=== PATIENT | male | born 1965 | race Caucasian/White ===

== ENCOUNTER 2016-07-15 16:09 | Emergency (ER) | payer MEDICARE ==
[~2016-07-15] VITALS: Ht 175.3 cm; Wt 94.0 kg
[~2016-07-15 16:09] MED LIST: ALBU83IN INH; AZIT250T3 PO; AZIT500I IV; BREO1INH3 PO; CEFT1INJ65 IV; CENTTAB PO; FLUT1LOT INH; FOLI5INJ2 IV; LISI10TA4 PO; METH40VIAL IV; NYST10CR PO; PRED10TA PO; PRED20TA PO; PROT40IN4 IV; THIA100I4 IV; VITMTA PO
[2016-07-15] MEDS ORDERED: MEDR4PAK (16:25)
[2016-07-15] MEDS ORDERED: ALBU17IN (16:25)
[2016-07-15 16:45] VITALS: BP 128/76
== END 2016-07-15 17:43 | disposition home or self-care (01) ==
LOC: EDBD 16:09 → M ED 17:27
DX: F19.10 Other psychoactive substance abuse, uncomplicated (principal); F10.229 Alcohol dependence with intoxication, unspecified; I10 Essential (primary) hypertension; J44.9 Chronic obstructive pulmonary disease, unspecified; F17.200 Nicotine dependence, unspecified, uncomplicated; Z79.2 Long term (current) use of antibiotics; Z79.899 Other long term (current) drug therapy; Z79.84 Long term (current) use of oral hypoglycemic drugs; Z79.51 Long term (current) use of inhaled steroids; Z88.1 Allergy status to other antibiotic agents

== ENCOUNTER 2016-08-16 12:20 | Emergency (ER) | payer MEDICARE ==
[~2016-08-16] VITALS: Ht 175.3 cm; Wt 90.7 kg
[~2016-08-16 12:20] MED LIST changes: +ALBU17IN; +MEDR4PAK
[2016-08-16 13:10] VITALS: BP 147/100
== END 2016-08-16 13:14 | disposition home or self-care (01) ==
LOC: M ED 12:49
DX: Z48.02 Encounter for removal of sutures (principal); I10 Essential (primary) hypertension

== ENCOUNTER → 2016-08-23 | Outpatient (CLI) | payer MEDICARE | LOC: M OUTALCOH 14:00 | PROVIDERS: ATTEND Psychiatry & Neurology Psychiatry | DX: F14.20 Cocaine dependence, uncomplicated (principal); F15.20 Other stimulant dependence, uncomplicated ==

== ENCOUNTER 2016-08-31 15:51 | Outpatient (RCR) | payer MEDICARE ==
[~2016-08-31 15:51] MED LIST changes: +AZIT-12 PO; -AZIT250T3 PO
== END 2016-09-14 ==
LOC: M OUTALCOH 15:51
PROVIDERS: ATTEND Psychiatry & Neurology Psychiatry
DX: Z13.9 Encounter for screening, unspecified (principal); F14.20 Cocaine dependence, uncomplicated; F15.20 Other stimulant dependence, uncomplicated; F17.200 Nicotine dependence, unspecified, uncomplicated

== ENCOUNTER 2017-01-07 20:22 | Emergency (ER) | payer MEDICARE ==
[~2017-01-07] VITALS: Ht 175.3 cm; Wt 113.6 kg
[~2017-01-07 20:22] MED LIST changes: -AMOX500C PO
[2017-01-07] MEDS: IPRATROPIUM 0.5MG/ALBUTEROL 2.5MG INH SOL UD 3ML (DUONEB)(J7620) NEB PRN ×3 (22:00→22:02)
[2017-01-07 22:04] LABS: ABG BASE EXCESS 0.7 (-2.0-2.0); ABG HCO3 24.8 MEQ/L (22.0-26.0); ABG PARTIAL PRESSURE CO2 38.4 mmHg (35.0-45.0); ABG PARTIAL PRESSURE O2 102.4 mmHg (75.0-100.0); ABG STANDARD HCO3 25.1 MEQ/L (22.0-26.0); ABG pH (ARTERIAL) 7.428 UNITS (7.350-7.450)
[2017-01-07 22:19] LABS: BASO % 0.1 % (0.0-1.0); EOS # 0.1 10^3/uL (0.0-0.50); EOS % 0.9 % (0.0-3.0); IMMATURE GRANULOCYTE % 0.7 % (0-0); LYMPH # 0.5 10^3/uL (1.5-4.5); LYMPH % 5.4 % (24.0-44.0); MEAN CORPUSCULAR HEMOGLOBIN 30.4 pg (27.0-33.0); MEAN CORPUSCULAR HGB CONC 33.1 g/dl (32.0-36.5); MONO # 0.1 10^3/uL (0.0-0.8); NEUTROPHILS # 8.1 10^3/uL (1.8-7.7); NEUTROPHILS % 91.9 % (36.0-66.0); PLATELET COUNT, AUTOMATED 151 10^3/uL (150-450); RED CELL DISTRIBUTION WIDTH 12.5 % (11.5-14.5); WHITE BLOOD COUNT 8.8 10^3/uL (4.0-10.0)
[2017-01-07 22:46] LABS: ANION GAP 7 MEQ/L (8-16); BLOOD UREA NITROGEN 13 MG/DL (7-18); CALCIUM LEVEL 8.9 MG/DL (8.5-10.1); CARBON DIOXIDE LEVEL 33 MEQ/L (21-32); CHLORIDE LEVEL 103 MEQ/L (98-107); CREATININE FOR GFR 0.88 MG/DL (0.70-1.30); GLOMERULAR FILTRATION RATE > 60.0 (>56); GLUCOSE, FASTING 136 MG/DL (70-105); POTASSIUM SERUM 4.6 MEQ/L (3.5-5.1); SODIUM LEVEL 143 MEQ/L (136-145)
[2017-01-07] MEDS ORDERED: PRED20TA PO (23:45)
[2017-01-07] MEDS ORDERED: AMOXICILLIN 500 MG CAP PO ONE (23:45)
[2017-01-07] MEDS ORDERED: AMOX500C PO (23:45)
[2017-01-08 00:04] VITALS: BP 142/67
--- NOTE | 2017-01-08 07:52 | REP ---
PA and lateral chest 10:33 p.m. : Comparison is a 01/07/2017 at 05:58 p.m. There is focal discoid atelectasis inferiorly in the left lung, unchanged. There are no focal infiltrates or effusions. There is a 2.5 cm nodule in the right middle lobe, unchanged. The susanne are enlarged bilaterally. This is unchanged. Cardiac size is upper normal. Mediastinum and bony thorax unremarkable. Impression: Discoid atelectasis on the left. Right middle lobe lung nodule. Enlarged bilateral susanne. Signed by Babar Goode MD 01/08/2017 07:43 A
--- NOTE | 2017-01-08 10:09 | ED PDOC ---
Post-Departure Follow-Up radiology report faxed to Jerica Lynne MD Jan 08, 2017 10:09
== END 2017-01-08 00:37 | disposition home or self-care (01) ==
LOC: M ED 20:22
DX: J44.9 Chronic obstructive pulmonary disease, unspecified (principal); J02.0 Streptococcal pharyngitis; I10 Essential (primary) hypertension; Z88.1 Allergy status to other antibiotic agents; F17.210 Nicotine dependence, cigarettes, uncomplicated
CPT/HCPCS: 36415; 36600; 71020; 80048; 82550; 82553; 82803; 83605; 84484; 85025; 87040; 87804; 87880; 93041; 94640; 99284; G0463; J2930; J7613; J7644

== ENCOUNTER → 2017-01-07 | Outpatient (CLI) | payer MEDICARE ==
[~2017-01-07] MED LIST changes: +AMOX500C PO
--- NOTE | 2017-01-07 18:18 | REP ---
REASON: Dyspnea. COMPARISON: 03/20/2016 The interstitial markings are diffusely increased. There is bilateral perihilar, peribronchial cuffing. This is unchanged. There is a nodular density in the right middle lobe which is unchanged. Prior CT showed this to be a calcified granuloma. There is no plain film evidence of an acute patchy parenchymal opacity or pleural effusion. The cardiomediastinal silhouette is unchanged. Prior CT showed adenopathy. That should be reviewed by all interested parties. There is no change in the osseous structure. IMPRESSION: Stable appearing chronic changes as described above. Correlate clinically to assess for acute disease, superimposed on chronic change. Signed by David Ken DO 01/07/2017 07:29 P
== END ==
LOC: M LRY 17:36
PROVIDERS: ATTEND Nurse Practitioner Family
DX: R06.02 Shortness of breath (principal); J98.4 Other disorders of lung

== ENCOUNTER → 2018-06-30 | Outpatient (REF) ==
[~2018-06-30] MED LIST changes: +AMOX500C PO; +FLON1SPR NARES; +FLUTISP; +HYDR12.55 PO; +IPRA0.00 INH; +METF-877 PO; +PATIENT COMMENTS; +PRED-351 PO; -PRED10TA PO
[2018-07-01 11:42] LABS: ALBUMIN 3.4 GM/DL (3.2-5.2); CALCIUM LEVEL 7.6 MG/DL (8.5-10.1)
== END ==
LOC: M LAB LCGH 11:10
DX: Z00.00 Encounter for general adult medical examination without abnormal findings (principal)

== ENCOUNTER 2018-07-01 02:45 | Inpatient (IN) | payer MEDICARE ==
[2018-07-01] VITALS (21 sets, daily range): BP systolic 111–135; BP diastolic 54–65; O2SAT 94
[~2018-07-01] VITALS: Ht 190.5 cm; Wt 125.9 kg
[~2018-07-01 02:45] MED LIST changes: -FLON1SPR NARES; -FLUTISP; -HYDR12.55 PO; -IPRA0.00 INH; -METF-877 PO; -PATIENT COMMENTS
[2018-07-01] MEDS ORDERED: PROPOFOL 1,000 MG/100 ML VIAL As Ordered ONE (02:51)
[2018-07-01] MEDS ORDERED: PROPOFOL 1,000 MG in APPROPRIATE DILUENT 1 EA IV SCH (03:00)
[2018-07-01 03:08] LABS: ABG BASE EXCESS 6.9 (-2.0-2.0); ABG HCO3 33.8 MEQ/L (22.0-26.0); ABG O2 SATURATION 93.7 % (95.0-99.0); ABG PARTIAL PRESSURE CO2 56.7 mmHg (35.0-45.0); ABG PARTIAL PRESSURE O2 63.1 mmHg (75.0-100.0); ABG STANDARD HCO3 30.6 MEQ/L (22.0-26.0); ABG TOTAL CO2 35.5 MEQ/L (22.0-29.0); ABG pH (ARTERIAL) 7.393 UNITS (7.350-7.450)
[2018-07-01] MEDS ORDERED: MORPHINE 4 MG/ML 1ML VIAL/SYRINGE (J2270) IV PRN (04:15)
[2018-07-01] MEDS ORDERED: GLUCAGON FOR INJ 1 MG VIAL (J1610) SC PRN (04:15)
[2018-07-01] MEDS ORDERED: GLUCOSE 4 GM CHEW TABLET PO PRN (04:15)
[2018-07-01] MEDS ORDERED: DEXTROSE 50% 50 ML SYRINGE IV PRN (04:15)
[2018-07-01] MEDS ORDERED: FLUTISP (04:21)
[2018-07-01] MEDS ORDERED: METF-877 PO (04:21)
[2018-07-01] MEDS ORDERED: FLON1SPR NARES (04:21)
[2018-07-01] MEDS ORDERED: IPRA0.00 INH (04:21)
[2018-07-01] MEDS ORDERED: HYDR12.55 PO (04:21)
[2018-07-01] MEDS ORDERED: PATIENT COMMENTS (04:24)
[2018-07-01] MEDS: PROPOFOL 1,000 MG in APPROPRIATE DILUENT 1 EA IV SCH ×7 (05:04→22:32)
--- NOTE | 2018-07-01 05:43 | HPE ---
DATE OF ADMISSION: 07/01/2018 START TIME: 03:55 STOP TIME: 04:29 HISTORY OF PRESENT ILLNESS: In essence this is a 53-year-old gentleman with known prior substance abuse, chronic hypoxemic, hypercapnic respiratory failure with previous longstanding tobacco abuse and known lung nodules. He was last seen as an inpatient here in 2016. In essence he presented to [facility] Emergency room (ER) with increasing shortness of breath and was found to be hypoxic on his usual oxygen. He has been on medications through his primary for an upper respiratory infection. Even on 5 liters nasal cannula apparently he still had sats in the 70s and 80s but was mentating. Blood gases done there showed a pH of 7.2 and PCO2 that was reportedly out of range of their machine. He was placed on noninvasive support. Repeat blood gas apparently showed no improvement. He was then getting lethargic by their report and was intubated and transferred here. No other history is able to be obtained from the patient and minimal was obtained from the chart from [facility]. On arrival here after being ventilated pH is 7.393, PCO2 56.7, PO2 63.1. ALLERGIES: LEVAQUIN with a rash. HOME MEDICATIONS: - Centrum Silver - baby aspirin - Symbicort 160/4.5 - albuterol - Augmentin started recently - prednisone unknown dose - BrendonoNebridget hypoxemic and hypercapnic respiratory failure on home oxygen - Flonase - Hydrochlorothiazide 12.5 mg daily - Metformin 1000 mg twice a day PAST MEDICAL HISTORY: 1. Rlx-tgpaihw-illvfgvkz diabetes mellitus. 2. Previous substance abuse, polysubstance abuse. 3. Previous longstanding tobacco abuse. 4. Chronic hypoxic and hypercapnic respiratory failure on home oxygen. 5. History of lung nodules. SOCIAL HISTORY: Unobtainable but known previous tobacco and substance abuse. FAMILY HISTORY: Unobtainable. REVIEW OF SYSTEMS: Currently unobtainable from the patient and minimal is obtained from the chart other than what is outlined above. PHYSICAL EXAMINATION: Examination currently reveals a sedated gentleman who appears his stated age. VITAL SIGNS: Blood pressure 104/60, heart rate 66 and regular, respirations 20 via the ventilator and he is afebrile. HEENT: Oroendotracheal and orogastric tube. Pupils are small but reactive. Mild conjunctival edema. Membranes are moist. Trachea is in the midline. CHEST: Symmetric expansion with some rhonchi. Some faint basilar crackles but no obvious wheeze. Expansion is symmetric. CARDIAC: Distant but regular. Peripheral pulses palpable, no edema. ABDOMEN: Obese, soft, active bowel sounds, no masses, nontender although he is sedate. EXTREMITIES: No cyanosis or clubbing. NEUROLOGICALLY: He is sedated. Chest x-ray shows the endotracheal tube to be in good position. Orogastric tube goes below the diaphragm. What appears to be chronic changes, otherwise. LABORATORY DATA: All repeat laboratories here are pending. White blood cell count from [facility] 8.7, hemoglobin 14.5, platelets 153,000. Electrolytes from [facility] Count: Sodium 139, potassium (K) 3.6, chloride 98, CO2 38, BUN 13, creatinine 0.8. Cultures are pending. IMPRESSION: 1. Acute on chronic hypoxemic hypercapnic respiratory failure requiring respiratory support with mechanical ventilation. 2.Advanced obstructive lung disease. 3. Previous tobacco abuse. 4. Previous substance abuse. 5. Xtm-xujjzmx-rcatikpqs diabetes mellitus. 6. Previous stable lung nodules. RECOMMENDATIONS: At this point he will be sedated, ventilator adjustments will be made as needed. He will be placed on empiric antimicrobials, intravenous (IV) steroids and nebulized bronchodilators. Deep venous thrombosis (DVT) and ulcer prophylaxis are ordered. My hope is that we will be able to wean him quickly as there is actually no active bronchospasm at the moment at least currently. Will need to address whether or not he has had any repeat issues with substance abuse. We will monitor his sugars. There is high potential for compromise in view of his status. Further recommendations will be made in the progress record as new information becomes available. I left the bedside at 04:29 hours. 34 minutes of critical care time at the bedside not including procedures.
[2018-07-01] MEDS: MIDAZOLAM INJ 2 MG/2 ML VIAL (J2250) IV PRN ×3 (06:04→21:47)
[2018-07-01] MEDS: HumaLOG INSULIN (NovoLOG) PER UNIT SC SCH ×4 (06:39→23:39)
[2018-07-01] MEDS: HEPARIN SOD (PORCINE) 5000 UNITS/ML VIAL SC SCH ×3 (06:52→21:17)
[2018-07-01] MEDS: KCL 20MEQ IN D5/0.45NS 1000ML 1,000 ML IV SCH ×3 (06:52→20:36)
[2018-07-01] MEDS: AZITHROMYCIN INJ 500 MG, VIAL MATE ADAPTER 1 EACH in D5W 250 ML IV SCH (06:52)
[2018-07-01] MEDS: methylPREDNISolone INJ 125 MG/2 ML VIAL (J2930) IV SCH ×3 (06:52→21:16)
[2018-07-01 07:30] LABS: BASO % 0.2 % (0.0-1.0); EOS % 0.2 % (0.0-3.0); HEMATOCRIT 44.3 % (42.0-52.0); HEMOGLOBIN 14.4 g/dl (13.5-17.5); LYMPH # 0.5 10^3/uL (1.5-4.5); LYMPH % 10.2 % (24.0-44.0); MEAN CORPUSCULAR HEMOGLOBIN 30.3 pg (27.0-33.0); MEAN CORPUSCULAR HGB CONC 32.5 g/dl (32.0-36.5); MEAN CORPUSCULAR VOLUME 93.1 fl (80.0-96.0); MONO # 0.2 10^3/uL (0.0-0.8); MONO % 4.7 % (0.0-5.0); NEUTROPHILS % 83.9 % (36.0-66.0); PLATELET COUNT, AUTOMATED 162 10^3/uL (150-450); RED BLOOD COUNT 4.76 10^6/uL (4.30-6.10); WHITE BLOOD COUNT 4.7 10^3/uL (4.0-10.0)
--- NOTE | 2018-07-01 07:53 | REP ---
Portable chest, 03:04 a.m., single semi upright AP view: Comparison is 01/07/2017. There is atelectasis inferiorly in the left lung, similar to the comparison study. There is a nodule inferiorly in the right lung. On the previous PA and lateral views this was in the right middle lobe. The nodule measures search 3.0 cm on the study today. The susanne again appear large bilaterally. This is unchanged. There is an endotracheal tube with the tip at the marce but not selectively within either the right and left main stem bronchi. There is a nasogastric tube with the tip terminating in the abdominal left upper quadrant. Impression: ET tube tip is at the marce but not selectively within the right or left main stem bronchi. Electronically Signed by Babar Goode MD 07/01/2018 07:44 A
[2018-07-01 07:54] LABS: ALBUMIN 3.4 GM/DL (3.2-5.2); ALT/SGPT 33 U/L (12-78); BILIRUBIN,TOTAL 0.4 MG/DL (0.2-1.0); BLOOD UREA NITROGEN 13 MG/DL (7-18); CARBON DIOXIDE LEVEL 35 MEQ/L (21-32); CHLORIDE LEVEL 100 MEQ/L (98-107); CHOLESTEROL LEVEL 110 MG/DL (< 200); CPK CREATINE PHOSPHOKINASE 123 U/L (39-308); CREATININE FOR GFR 0.75 MG/DL (0.70-1.30); GLOMERULAR FILTRATION RATE > 60.0 (>56); GLUCOSE, FASTING 197 MG/DL (70-100); LDH LACTATE DEHYDROGENASE 164 U/L (87-241); PHOSPHORUS LEVEL 1.9 MG/DL (2.5-4.9); POTASSIUM SERUM 3.6 MEQ/L (3.5-5.1); SODIUM LEVEL 139 MEQ/L (136-145); TOTAL PROTEIN 5.8 GM/DL (6.4-8.2); TRIGLYCERIDES LEVEL 88 MG/DL (<150)
[2018-07-01] MEDS: IPRATROPIUM 0.5MG/ALBUTEROL 2.5MG INH SOL UD 3ML (DUONEB)(J7620) NEB SCH ×5 (07:58→23:35)
[2018-07-01] MEDS: CHLORHEXIDINE GLUCONATE 0.12 % 15ML UDC (PERIDEX ORAL RINSE) MT SCH ×2 (08:50→20:08)
[2018-07-01] MEDS: PANTOPRAZOLE 40MG INJ (PROTONIX) (C9113) IV SCH (08:50)
[2018-07-01] MEDS: cefTRIAXone SOD 1 GM in D5W MINI-BAG PLUS 50 ML IV SCH (08:50)
[2018-07-01 09:13] LABS: ABG BASE EXCESS 5.8 (-2.0-2.0); ABG O2 SATURATION 91.6 % (95.0-99.0); ABG PARTIAL PRESSURE CO2 57.8 mmHg (35.0-45.0); ABG PARTIAL PRESSURE O2 60.2 mmHg (75.0-100.0); ABG STANDARD HCO3 29.5 MEQ/L (22.0-26.0); ABG TOTAL CO2 34.7 MEQ/L (22.0-29.0); ABG pH (ARTERIAL) 7.374 UNITS (7.350-7.450)
--- NOTE | 2018-07-01 09:17 | CCN ---
DATE OF VISIT: 07/01/2018 START TIME: 08 STOP TIME: 0849 I again attended Eleno Rosales here in the intensive care unit. The patient has been examined and the chart is reviewed. Over the last several hours, he has had no other new issues. Blood pressure 115 to 120s. He has not required vasopressors. Heart rate generally in the 60s with a sinus mechanism. T-max 99.2. Most recent laboratories show a white blood cell count of 4.7, hemoglobin 14.4 and platelet count 162,000, with 83.9% segs, 0 bands. Sodium 139, potassium 3.6, chloride 100, CO2 35, BUN 13, creatinine 0.75, glucose 197. Phosphorus low at 1.9. On exam, pupils do react. Sclerae are clear. Mild conjunctival irritation. Trachea is midline. Membranes are moist. Endotracheal tube is at 25 to 26 cm at the lip this morning, having been at 23 this morning. Will get an x-ray to see where we are at with that. Chest shows diminished, but symmetric expansion. Percussion reasonable. No wheeze or rhonchus. Cardiac exam is regular with no gallop. Peripheral pulses palpable. There is trace edema. Abdomen obese, soft, with active bowel sounds. No organomegaly or masses. Extremities without cyanosis or clubbing. Neurologically, he is sedate. The most pressing problems requiring my presence at the bedside are: 1. Acute on chronic respiratory failure, both hypoxemic and hypercapnic. 2. Advanced obstructive lung disease. 3. Long standing previous history of tobacco abuse. 4. Previous lung nodules. 5. Substance abuse. 6. Non insulin dependent diabetes mellitus. At this point, will recheck his chest x-ray. He was just intubated several hours ago so we will check a blood gas to see where we are at with his ventilator settings and make adjustments as need be. Hopefully, in the next 24 to 48 hours, we will be able to push him to extubation. If we are not able to extubate him by tomorrow, then will begin enteral feeds. Will replete his phosphorus. Glucose control is reasonable. Ulcer and deep vein thrombosis (DVT) prophylaxis are in place and head of the bed is at 30 degrees. At this point, he does remain critically ill. I left the bedside at 0849 hours. An additional 19 minutes of critical care time delivered at the bedside, not including procedures.
--- NOTE | 2018-07-01 09:18 | REP ---
Portable chest x-ray: Single view. History: Respiratory failure. Comparison study: July 01, 2018. Findings: Endotracheal tube remains in good position at the level of the transverse aorta. An NG tube enters left upper quadrant of the abdomen. There is bibasilar plate-like atelectatic change. The known right lower lobe nodular opacity is partially obscured today. Pulmonary vasculature is cephalized. Heart size is unchanged. No new infiltrate. Electronically Signed by Fredi Borrero MD 07/01/2018 09:11 A
[2018-07-01] MEDS ORDERED: POTASSIUM PHOSPHATE INJ 20 MMOL in D5W 250 ML IV ONE (10:00)
[2018-07-01] MEDS: OXAZEPAM 15 MG CAP NG SCH (22:31)
[2018-07-02] VITALS (23 sets, daily range): BP systolic 109–151; BP diastolic 53–73; O2SAT 94
[2018-07-02] MEDS: PROPOFOL 1,000 MG in APPROPRIATE DILUENT 1 EA IV SCH ×3 (00:45→06:15)
[2018-07-02] MEDS: IPRATROPIUM 0.5MG/ALBUTEROL 2.5MG INH SOL UD 3ML (DUONEB)(J7620) NEB SCH ×5 (04:10→20:12)
[2018-07-02] MEDS: KCL 20MEQ IN D5/0.45NS 1000ML 1,000 ML IV SCH (04:20)
[2018-07-02] MEDS: MIDAZOLAM INJ 2 MG/2 ML VIAL (J2250) IV PRN (04:32)
[2018-07-02 04:34] LABS: BASO % 0.1 % (0.0-1.0); EOS % 0.1 % (0.0-3.0); HEMATOCRIT 43.1 % (42.0-52.0); LYMPH # 0.4 10^3/uL (1.5-4.5); LYMPH % 5.3 % (24.0-44.0); MEAN CORPUSCULAR HEMOGLOBIN 30.3 pg (27.0-33.0); MEAN CORPUSCULAR HGB CONC 32.5 g/dl (32.0-36.5); MEAN CORPUSCULAR VOLUME 93.3 fl (80.0-96.0); MONO # 0.5 10^3/uL (0.0-0.8); MONO % 5.8 % (0.0-5.0); NEUTROPHILS # 7.2 10^3/uL (1.8-7.7); NEUTROPHILS % 88.2 % (36.0-66.0); PLATELET COUNT, AUTOMATED 154 10^3/uL (150-450); RED BLOOD COUNT 4.62 10^6/uL (4.30-6.10); WHITE BLOOD COUNT 8.2 10^3/uL (4.0-10.0)
[2018-07-02] MEDS: methylPREDNISolone INJ 125 MG/2 ML VIAL (J2930) IV SCH ×3 (04:55→21:23)
[2018-07-02] MEDS: AZITHROMYCIN INJ 500 MG, VIAL MATE ADAPTER 1 EACH in D5W 250 ML IV SCH (04:55)
[2018-07-02 05:25] LABS: ALBUMIN 3.4 GM/DL (3.2-5.2); ALT/SGPT 28 U/L (12-78); BILIRUBIN,TOTAL 0.3 MG/DL (0.2-1.0); BLOOD UREA NITROGEN 12 MG/DL (7-18); CARBON DIOXIDE LEVEL 37 MEQ/L (21-32); CHLORIDE LEVEL 101 MEQ/L (98-107); CHOLESTEROL LEVEL 130 MG/DL (< 200); CPK CREATINE PHOSPHOKINASE 142 U/L (39-308); CREATININE FOR GFR 0.74 MG/DL (0.70-1.30); GLOMERULAR FILTRATION RATE > 60.0 (>56); GLUCOSE, FASTING 245 MG/DL (70-100); LDH LACTATE DEHYDROGENASE 134 U/L (87-241); PHOSPHORUS LEVEL 2.6 MG/DL (2.5-4.9); POTASSIUM SERUM 3.8 MEQ/L (3.5-5.1); SODIUM LEVEL 141 MEQ/L (136-145); TOTAL PROTEIN 5.5 GM/DL (6.4-8.2); TRIGLYCERIDES LEVEL 122 MG/DL (<150)
[2018-07-02 05:34] LABS: ABG BASE EXCESS 5.3 (-2.0-2.0); ABG HCO3 31.9 MEQ/L (22.0-26.0); ABG O2 SATURATION 94.1 % (95.0-99.0); ABG PARTIAL PRESSURE CO2 54.7 mmHg (35.0-45.0); ABG PARTIAL PRESSURE O2 68.8 mmHg (75.0-100.0); ABG STANDARD HCO3 29.2 MEQ/L (22.0-26.0); ABG TOTAL CO2 33.6 MEQ/L (22.0-29.0); ABG pH (ARTERIAL) 7.384 UNITS (7.350-7.450)
[2018-07-02] MEDS: HEPARIN SOD (PORCINE) 5000 UNITS/ML VIAL SC SCH ×3 (06:15→21:23)
[2018-07-02] MEDS: cefTRIAXone SOD 1 GM in D5W MINI-BAG PLUS 50 ML IV SCH (06:16)
[2018-07-02] MEDS: HumaLOG INSULIN (NovoLOG) PER UNIT SC SCH ×4 (06:16→21:00)
[2018-07-02] MEDS: OXAZEPAM 15 MG CAP NG SCH (06:16)
[2018-07-02] MEDS ORDERED: SLF 3 ML SYR IV PRN (06:45)
--- NOTE | 2018-07-02 07:41 | REP ---
Normal chest, 06:46 a.m., single AP semi upright view: Comparison is 07/01/2018. The bibasilar atelectasis is unchanged. Lung hopkins otherwise clear. The patient is rotated. The endotracheal tube and nasogastric tube remain in satisfactory positions, unchanged. Electronically Signed by Babar Goode MD 07/02/2018 07:32 A
[2018-07-02] MEDS: PANTOPRAZOLE 40MG INJ (PROTONIX) (C9113) IV SCH (08:07)
[2018-07-02] MEDS: CHLORHEXIDINE GLUCONATE 0.12 % 15ML UDC (PERIDEX ORAL RINSE) MT SCH ×2 (08:07→21:00)
[2018-07-02 10:30] LABS: ABG BASE EXCESS 2.8 (-2.0-2.0); ABG O2 SATURATION 94.8 % (95.0-99.0); ABG PARTIAL PRESSURE CO2 56.6 mmHg (35.0-45.0); ABG PARTIAL PRESSURE O2 76.1 mmHg (75.0-100.0); ABG STANDARD HCO3 26.9 MEQ/L (22.0-26.0); ABG TOTAL CO2 31.7 MEQ/L (22.0-29.0); ABG pH (ARTERIAL) 7.342 UNITS (7.350-7.450)
[2018-07-02 10:34] LABS: MAGNESIUM LEVEL 2.7 MG/DL (1.8-2.4)
--- NOTE | 2018-07-02 10:40 | HPEPDOC ---
General Date of Admission Jul 01, 2018 at 04:15 Chief Complaint The patient is a 53-year-old male admitted with a reason for visit of Acute Res piratory Failure W Hypercapnia, Copd. Source: Patient History of Present Illness The patient is a 52-year-old gentleman with a previous history of substance abuse as well as COPD who was transferred from [facility] for respiratory failure requiring intubation. The patient was admitted to the ICU under the associate director qa service. The patient was extubated earlier today. He reports to me that he was having some cough with whitish sputum at home. Denies necessary fevers/chills or sweats. Denies any chest pain. No nausea or vomiting. Reports he was taking by mouth intake well. Denies any recent smoking. Reports a history of [id number] or more smoking but quit over 2 years ago. Denies any recent alcohol abusereports was drinking about 3 beers per night daily for a while but quit about couple of years ago. Denies any shortness of breath and this time. No dizziness or lightheadedness. No chest pain. Denies abdominal pain or any problems with constipation. Currently has a Obrien catheter in place. Home Medications Scheduled Hydrochlorothiazide (Hydrochlorothiazide) 12.5 Mg Tablet, 12.5 MG PO DAILY, (Reported) Ipratropium/Albuterol Sulfate (Iprat-Albut 0.5-3(2.5) mg/3 ml) 3 Ml Ampul.neb, 1 ALYCIA INH QID, (Reported) Metformin HCl (Metformin HCl) 1,000 Mg Tablet, 1,000 MG PO BID, (Reported) Scheduled PRN Fluticasone Propionate (Fluticasone Propionate) 16 Gm [place].susp, 1 SPRAY NA BID PRN for CONGESTION, (Reported) Miscellaneous Medications [Patient Comments] , (Reported) PATIENT IS INTUBATED AT THIS TIME (0425) NO RELATIVES OR VISITORS PRESENT. MEDICATIONS LISTED ARE AVAILABLE AND ACTIVE AT HIS PHARMACY Allergies Coded Allergies: levofloxacin (Verified Allergy, Intermediate, RASH, 07/01/18) Past Medical History Medical History Chronic hypoxemic hypercapnic respiratory failure/COPD, hypertension, diabetes mellitus type 2, history of polysubstance abuse, history of lung nodules Family History Personally reviewedDenies any family history of heart or lung problems or any other major medical problems Social History * Smoker: other (smoked over one pack per day for 20 yearsquit 2 years ago) Alcohol: other (used to drink 3 beers per nightreports none in last 2 years) Drugs: denies, other (previous history of snorting crack cocaine for the patient denied any drug use to me) Review of Systems Other systems Negative for 10 systems except as noted under history of present illness Physical Examination General Exam: Positive: Alert, Cooperative, No Acute Distress Eye Exam: Positive: PERRLA Chest Exam: Positive: Other (good air entry bilaterally. No wheezing or crackles on my exam. No distress.) Heart Exam: Positive: Rate Normal, Normal S1, Normal S2 Abdomen Exam: Positive: Soft, Other (nontender. No guarding or rigidity.) Extremity Exam: Positive: Other (trace to 1+ edema bilateral lower extremities) Skin Exam: Negative: Rash Neuro Exam: Positive: Other (awake, alert, oriented 3. Answering questions gareth ropriately. Moving all 4 extremities.) Other physical findings Obrien catheter in placelight yellow urine Vital Signs Vital Signs Date Time Temp Pulse Resp B/P (MAP) Pulse Ox O2 Delivery O2 Flow Rate FiO2 07/02/18 08:00 97.6 80 21 122/59 (80) 92 35 07/02/18 07:43 Ventilator Laboratory Data Labs 24H Laboratory Tests 2 07/01/18 12:04: Bedside Glucose (Misc Panel) 225H 07/01/18 16:57: Bedside Glucose (Misc Panel) 321H 07/01/18 23:35: Bedside Glucose (Misc Panel) 220H 07/02/18 04:20: Immature Granulocyte % (Auto) 0.5, White Blood Count 8.2, Red Blood Count 4.62, Hemoglobin 14.0, Hematocrit 43.1, Mean Corpuscular Volume 93.3, Mean Corpuscular Hemoglobin 30.3, Mean Corpuscular Hemoglobin Concent 32.5, Red Cell Distribution Width 12.5, Platelet Count 154, Neutrophils (%) (Auto) 88.2H, Lymphocytes (%) (Auto) 5.3L, Monocytes (%) (Auto) 5.8H, Eosinophils (%) (Auto) 0.1, Basophils (%) (Auto) 0.1, Neutrophils # (Auto) 7.2, Lymphocytes # (Auto) 0.4L, Monocytes # (Auto) 0.5, Eosinophils # (Auto) 0.0, Basophils # (Auto) 0.0, Nucleated Red Blood Cells % (auto) 0.0, Anion Gap 3L, Glomerular Filtration Rate > 60.0, Blood Urea Nitrogen 12, Creatinine 0.74, Sodium Level 141, Potassium Level 3.8, Chlori de Level 101, Carbon Dioxide Level 37H, Calcium Level 8.0L, Phosphorus Level 2.6#, Aspartate Amino Transf (AST/SGOT) 4L, Alanine Aminotransferase (ALT/SGPT) 28, Lactate Dehydrogenase 134, Total Creatine Kinase 142, Alkaline Phosphatase 45, Total Bilirubin 0.3, Triglycerides Level 122, Cholesterol Level 130, Total Protein 5.5L, Albumin 3.4, Albumin/Globulin Ratio 1.62 07/02/18 05:19: Blood Gas Bicarbonate Standard 29.2H, Arterial Blood pH 7.384, Arterial Blood Partial Pressure CO2 54.7H, Arterial Blood Partial Pressure O2 68.8L, Arterial Blood Total CO2 33.6H, Arterial Blood HCO3 31.9H, Arterial Blood Base Excess 5.3H, Arterial Blood Oxygen Saturation 94.1L CBC/BMP Laboratory Tests 07/02/18 04:20 Red Blood Count 4.62, Mean Corpuscular Volume 93.3, Mean Corpuscular Hemoglobin 30.3, Mean Corpuscular Hemoglobin Concent 32.5, Red Cell Distribution Width 12.5, Neutrophils (%) (Auto) 88.2 H, Lymphocytes (%) (Auto) 5.3 L, Monocytes (%) (Auto) 5.8 H, Eosinophils (%) (Auto) 0.1, Basophils (%) (Auto) 0.1, Neutrophils # (Auto) 7.2, Lymphocytes # (Auto) 0.4 L, Monocytes # (Auto) 0.5, Eosinophils # (Auto) 0.0, Basophils # (Auto) 0.0, Calcium Level 8.0 L, Phosphorus Level 2.6 #, Aspartate Amino Transf (AST/SGOT) 4 L, Alanine Aminotransferase (ALT/SGPT) 28, Lactate Dehydrogenase 134, Total Creatine Kinase 142, Alkaline Phosphatase 45, Total Bilirubin 0.3, Triglycerides Level 122, Cholesterol Level 130, Total Protein 5.5 L, Albumin 3.4 RAD Interpretation STUDY: CXR (did not show any obvious infiltrates. ET tube was in position this morning.) Assessment/Plan Acute on chronic hypoxemic hypercapnic respiratory failure requiring intubation: -Status post extubation 07/02/18 -Wean O2 as tolerated -Decreased dose of IV Solu-Medrol -Continue empiric IV azithromycin and ceftriaxone Diabetes mellitus type 2; -Sliding-scale insulin -Holding metformin -Carbohydrate consistent diet Hypophosphatemia -Resolved Advanced obstructive lung disease with a history of previous tobacco abuse: -Denies smoking or the last couple of years History of lung nodules History of substance abuse: -Denies any drug use to me. Denies any alcohol use over the last couple years. -Currently on Serax - plan will be to hopefully fully taper over the next 48 hours GI/DVT prophylaxis: -PPIs/subcutaneous heparin Disposition: Anticipate possible transfer out of the ICU within the next 24 hours. Anticipate eventual discharge home once he is medically stable Plan / VTE VTE Prophylaxis Ordered?: Yes Plan / Urinary Catheter Urinary Catheter: D/C HELENE Bentley MD Jul 02, 2018 10:40
--- NOTE | 2018-07-02 11:49 | CCN ---
DATE: 07/02/2018 START TIME: 849 STOP TIME: 924 I again attended Eleno Rosales here in the intensive care unit. Patient has been examined and his chart reviewed. Propofol has been stopped this morning. Due to some agitation last night, Serax was added, which helped considerably. This morning, he is awake, alert, appropriate. Follows all commands. States he is breathing comfortably. Maximum temperature (T-max) overnight 98.3, blood pressure 109 to the 120s. Heart rate generally in the 70s and 80s with a sinus mechanism. Respiratory rate in the low 20s without accessory muscle use. Input and output midnight to midnight 3123 mL in with 2352 mL out. Chest x-ray done this morning shows it to be significantly rotated. Essentially expiratory film. Cannot rule out basilar atelectasis and some vascular crowding. Most recent laboratories show a white blood cell count of 8.2, hemoglobin 42.0, platelet count of 154,000, 80% segs, no bands. Sodium 141, potassium 3.8, chloride 101, CO2 37, BUN 12, creatinine 0.74, glucose 245. Albumin 3.4. Blood gas done this morning on PRVC rate of 15, tidal volume 450, PEEP of 5, FiO2 40%, pH 7.34, pCO2 54.7, pO2 68.8. He was placed on an IV mode with dependent pressure support and moved tidal volumes from between 6 and 700 and was quite comfortable. On exam, he is awake, alert, and appropriate. Follows all commands. Pupils are reactive to light, sclerae clear. Trachea is in the midline. Chest diminished with symmetric expansion with fine basilar crackles. There rest of rhonchi clears with suctioning. No other focal adventitious breath sounds are identified. Cardiac exam is regular with no gallop. Peripheral pulses diminished but palpable. There is at least 1+ edema. Abdomen is soft, with active bowel sounds. No convincing organomegaly or mass. Extremities without cyanosis or clubbing. Neurologically easily arousable and does follow commands. While at the bedside, he was extubated. No stridor. Resting comfortably. Respiratory rate 20-22 without accessory muscle use. Strong voice and good cough. Most Pressing problems requiring my presence at the bedside: 1. Acute on chronic respiratory failure both hypoxemic and hypercapnic. 2. Advanced underlying obstructive lung disease. 3. Previous substance and tobacco abuse. 4. Chronically abnormal x-ray. At this point, we proceed with the extubation. He is doing well at the moment. He will be followed closely. I will transfer his care to the hospitalist service. We will continue steroids, antibiotics and aerosols. I will allow him out of bed. Will check a gas in an hour. He does not use noninvasive support or CPAP at home. We will assure that he is not still using illicit drugs at home as his last admission was precipitated by that. I left the bedside at 0925 hours. 35 minutes of critical care time at the bedside no including the procedures.
[2018-07-02] MEDS: SLF 3 ML SYR IV SCH ×2 (13:38→21:24)
[2018-07-02] MEDS: OXAZEPAM 15 MG CAP PO SCH ×2 (13:39→21:23)
[2018-07-02] MEDS ORDERED: OXAZEPAM 15 MG CAP NG SCH (14:00)
[2018-07-03] VITALS (7 sets, daily range): BP systolic 123–149; BP diastolic 58–62; O2SAT 94
[2018-07-03] MEDS: IPRATROPIUM 0.5MG/ALBUTEROL 2.5MG INH SOL UD 3ML (DUONEB)(J7620) NEB SCH ×6 (00:18→21:33)
[2018-07-03] MEDS: AZITHROMYCIN INJ 500 MG, VIAL MATE ADAPTER 1 EACH in D5W 250 ML IV SCH (04:17)
[2018-07-03] MEDS: methylPREDNISolone INJ 125 MG/2 ML VIAL (J2930) IV SCH ×2 (04:17→13:06)
[2018-07-03 05:07] LABS: HEMOGLOBIN 14.6 g/dl (13.5-17.5); LYMPH # 0.4 10^3/uL (1.5-4.5); LYMPH % 4.4 % (24.0-44.0); MEAN CORPUSCULAR HEMOGLOBIN 29.7 pg (27.0-33.0); MEAN CORPUSCULAR HGB CONC 31.1 g/dl (32.0-36.5); MEAN CORPUSCULAR VOLUME 95.7 fl (80.0-96.0); MONO # 0.6 10^3/uL (0.0-0.8); NEUTROPHILS # 8.5 10^3/uL (1.8-7.7); NEUTROPHILS % 89.3 % (36.0-66.0); PLATELET COUNT, AUTOMATED 143 10^3/uL (150-450); RED BLOOD COUNT 4.91 10^6/uL (4.30-6.10); WHITE BLOOD COUNT 9.5 10^3/uL (4.0-10.0)
[2018-07-03] MEDS: SLF 3 ML SYR IV SCH ×3 (05:23→21:00)
[2018-07-03] MEDS: OXAZEPAM 15 MG CAP PO SCH ×3 (05:23→20:59)
[2018-07-03] MEDS: HEPARIN SOD (PORCINE) 5000 UNITS/ML VIAL SC SCH ×3 (05:23→20:59)
[2018-07-03] MEDS: cefTRIAXone SOD 1 GM in D5W MINI-BAG PLUS 50 ML IV SCH (05:23)
[2018-07-03 05:25] LABS: ALBUMIN 3.2 GM/DL (3.2-5.2); ALT/SGPT 25 U/L (12-78); BILIRUBIN,TOTAL 0.2 MG/DL (0.2-1.0); BLOOD UREA NITROGEN 22 MG/DL (7-18); CALCIUM LEVEL 7.9 MG/DL (8.5-10.1); CARBON DIOXIDE LEVEL 37 MEQ/L (21-32); CHLORIDE LEVEL 104 MEQ/L (98-107); CHOLESTEROL LEVEL 154 MG/DL (< 200); CPK CREATINE PHOSPHOKINASE 91 U/L (39-308); CREATININE FOR GFR 0.61 MG/DL (0.70-1.30); GLOMERULAR FILTRATION RATE > 60.0 (>56); GLUCOSE, FASTING 214 MG/DL (70-100); LDH LACTATE DEHYDROGENASE 127 U/L (87-241); MAGNESIUM LEVEL 2.5 MG/DL (1.8-2.4); PHOSPHORUS LEVEL 3.6 MG/DL (2.5-4.9); SODIUM LEVEL 143 MEQ/L (136-145); TOTAL PROTEIN 5.8 GM/DL (6.4-8.2); TRIGLYCERIDES LEVEL 156 MG/DL (<150)
[2018-07-03] MEDS: HumaLOG INSULIN (NovoLOG) PER UNIT SC SCH ×4 (08:15→20:53)
[2018-07-03] MEDS: CHLORHEXIDINE GLUCONATE 0.12 % 15ML UDC (PERIDEX ORAL RINSE) MT SCH ×2 (08:15→20:59)
[2018-07-03] MEDS: PANTOPRAZOLE 40MG TAB (PROTONIX) PO SCH (08:56)
--- NOTE | 2018-07-03 16:36 | IPNPDOC ---
Date Seen The patient was seen on 07/03/18. Progress Note SUBJECTIVE: 52-year-old male with past medical history of COPD transfer from [facility] for respiratory failure that resulted in intubation for further management. Interval history: Patient reported feeling much better, denies any complaints. States that his SOB is chronic. Although not quite the same as when he was at home normally but feels well and like to leave soon. OBJECTIVE PHYSICAL EXAMINATION: VITAL SIGNS: Please see below. General: No acute distress, Alert Eyes: Normal sclera, EOMI, ANAND HENT: Atraumatic, neck supple, moist mucous membranes Cardiovascular: Normal rate, normal rhythm. No murmurs appreciated. Pulmonary: Clear to auscultation b/l, no wheezing GI: Soft, nontender, nondistended Skin: Warm and dry Neuro: CN grossly intact. No focal deficits. Strengths equal b/l. Psych: oriented x 3 LABORATORY DATA, IMAGING STUDIES, MICROBIOLOGY: Please see below. DVT prophylaxis ordered?: HSQ ASSESSMENT AND PLAN: 1. COPD exacerbation - Requiring mechanical intubation s/p extubation 07/02/18. - Saturating well on oxygen. - Wean solumedrol. - c/w empiric Abx. - States that he will go home tomorrow. Will try to optimize respiratory status. - c/w nebs. 2. DM - Accuchecks and ISS. - Hold metformin. - diabetic diet. 3. hx substance abuse on Serax Dispo: Likely home tomorrow. DISPOSITION: Home likely tomorrow. VS, I&O, 24H, Fishbone Vital Signs/I&O Vital Signs Date Time Temp Pulse Resp B/P (MAP) Pulse Ox O2 Delivery O2 Flow Rate FiO2 07/03/18 14:00 99.4 70 21 148/62 (90) 92 2.0 07/03/18 07:39 Nasal Cannula 07/02/18 10:00 35 I&O- Last 24 Hours up to 6 AM 07/03/18 06:00 Intake Total 2252 ml Output Total 2220 ml Balance 32 ml Laboratory Data 24H LABS Laboratory Tests 2 07/02/18 16:44: Bedside Glucose (Misc Panel) 145H 07/02/18 21:23: Bedside Glucose (Misc Panel) 183H 07/03/18 04:46: Immature Granulocyte % (Auto) 0.3, White Blood Count 9.5, Red Blood Count 4.91, Hemoglobin 14.6, Hematocrit 47.0, Mean Corpuscular Volume 95.7, Mean Corpuscular Hemoglobin 29.7, Mean Corpuscular Hemoglobin Concent 31.1L, Red Cell Distribution Width 12.5, Platelet Count 143L, Neutrophils (%) (Auto) 89.3H, Lymphocytes (%) (Auto) 4.4L, Monocytes (%) (Auto) 6.0H, Eosinophils (%) (Auto) 0.0, Basophils (%) (Auto) 0.0, Neutrophils # (Auto) 8.5H, Lymphocytes # (Auto) 0.4L, Monocytes # (Auto) 0.6, Eosinophils # (Auto) 0.0, Basophils # (Auto) 0.0, Nucleated Red Blood Cells % (auto) 0.0, Anion Gap 2L, Glomerular Filtration Rate > 60.0, Blood Urea Nitrogen 22#H, Creatinine 0.61L, Sodium Level 143, Potassium Level 5.0#, Chloride Level 104, Carbon Dioxide Level 37H, Calcium Level 7.9L, Phosphorus Level 3.6#, Aspartate Amino Transf (AST/SGOT) 4L, Alanine Aminotransferase (ALT/SGPT) 25, Lactate Dehydrogenase 127, Total Creatine Kinase 91, Alkaline Phosphatase 46, Total Bilirubin 0.2, Triglycerides Level 156H, Cholesterol Level 154, Total Protein 5.8L, Albumin 3.2, Magnesium Level 2.5H, Albumin/Globulin Ratio 1.23 07/03/18 07:52: Bedside Glucose (Misc Panel) 188H 07/03/18 12:06: Bedside Glucose (Misc Panel) 186H CBC/BMP Laboratory Tests 07/03/18 04:46 Red Blood Count 4.91, Mean Corpuscular Volume 95.7, Mean Corpuscular Hemoglobin 29.7, Mean Corpuscular Hemoglobin Concent 31.1 L, Red Cell Distribution Width 12.5, Neutrophils (%) (Auto) 89.3 H, Lymphocytes (%) (Auto) 4.4 L, Monocytes (%) (Auto) 6.0 H, Eosinophils (%) (Auto) 0.0, Basophils (%) (Auto) 0.0, Neutrophils # (Auto) 8.5 H, Lymphocytes # (Auto) 0.4 L, Monocytes # (Auto) 0.6, Eosinophils # (Auto) 0.0, Basophils # (Auto) 0.0, Calcium Level 7.9 L, Phosphorus Level 3.6 #, Aspartate Amino Transf (AST/SGOT) 4 L, Alanine Aminotransferase (ALT/SGPT) 25, Lactate Dehydrogenase 127, Total Creatine Kinase 91, Alkaline Phosphatase 46, Total Bilirubin 0.2, Triglycerides Level 156 H, Cholesterol Level 154, Total Protein 5.8 L, Albumin 3.2 MARTHA LUNA MD Jul 03, 2018 16:36
[2018-07-04] MEDS: IPRATROPIUM 0.5MG/ALBUTEROL 2.5MG INH SOL UD 3ML (DUONEB)(J7620) NEB SCH ×4 (00:40→11:33)
[2018-07-04 06:00] VITALS: BP 147/89
[2018-07-04] MEDS: HEPARIN SOD (PORCINE) 5000 UNITS/ML VIAL SC SCH (06:00)
[2018-07-04] MEDS: OXAZEPAM 15 MG CAP PO SCH (06:51)
[2018-07-04 06:52] LABS: EOS % 0.4 % (0.0-3.0); HEMATOCRIT 46.9 % (42.0-52.0); HEMOGLOBIN 14.8 g/dl (13.5-17.5); LYMPH # 1.1 10^3/uL (1.5-4.5); LYMPH % 15.2 % (24.0-44.0); MEAN CORPUSCULAR HEMOGLOBIN 29.7 pg (27.0-33.0); MEAN CORPUSCULAR HGB CONC 31.6 g/dl (32.0-36.5); MONO # 0.8 10^3/uL (0.0-0.8); MONO % 10.8 % (0.0-5.0); NEUTROPHILS # 5.2 10^3/uL (1.8-7.7); NEUTROPHILS % 72.9 % (36.0-66.0); PLATELET COUNT, AUTOMATED 125 10^3/uL (150-450); RED BLOOD COUNT 4.99 10^6/uL (4.30-6.10); WHITE BLOOD COUNT 7.1 10^3/uL (4.0-10.0)
[2018-07-04] MEDS: SLF 3 ML SYR IV SCH (06:52)
[2018-07-04] MEDS: cefTRIAXone SOD 1 GM in D5W MINI-BAG PLUS 50 ML IV SCH (06:52)
[2018-07-04] MEDS: AZITHROMYCIN INJ 500 MG, VIAL MATE ADAPTER 1 EACH in D5W 250 ML IV SCH (06:53)
[2018-07-04 07:12] LABS: ALBUMIN 3.2 GM/DL (3.2-5.2); ALT/SGPT 29 U/L (12-78); BILIRUBIN,TOTAL 0.4 MG/DL (0.2-1.0); BLOOD UREA NITROGEN 22 MG/DL (7-18); CARBON DIOXIDE LEVEL 39 MEQ/L (21-32); CHLORIDE LEVEL 100 MEQ/L (98-107); CHOLESTEROL LEVEL 163 MG/DL (< 200); CPK CREATINE PHOSPHOKINASE 65 U/L (39-308); CREATININE FOR GFR 0.58 MG/DL (0.70-1.30); GLOMERULAR FILTRATION RATE > 60.0 (>56); GLUCOSE, FASTING 119 MG/DL (70-100); LDH LACTATE DEHYDROGENASE 135 U/L (87-241); PHOSPHORUS LEVEL 4.2 MG/DL (2.5-4.9); POTASSIUM SERUM 4.6 MEQ/L (3.5-5.1); SODIUM LEVEL 142 MEQ/L (136-145); TOTAL PROTEIN 5.7 GM/DL (6.4-8.2); TRIGLYCERIDES LEVEL 172 MG/DL (<150)
[2018-07-04] MEDS ORDERED: methylPREDNISolone INJ 40 MG/1 ML VIAL (J2920) IV SCH (09:00)
[2018-07-04] MEDS: PANTOPRAZOLE 40MG TAB (PROTONIX) PO SCH (09:38)
[2018-07-04] MEDS: HumaLOG INSULIN (NovoLOG) PER UNIT SC SCH (09:38)
[2018-07-04] MEDS: CHLORHEXIDINE GLUCONATE 0.12 % 15ML UDC (PERIDEX ORAL RINSE) MT SCH (09:38)
[2018-07-04] MEDS ORDERED: PRED20TA PO (11:29)
[2018-07-04] MEDS ORDERED: LEVA1TAB2 PO (11:30)
--- NOTE | 2018-07-04 11:36 | DS.PDOC ---
Discharge Summary General Date of Admission Jul 01, 2018 at 04:15 Date of Discharge 07/04/18 Specialist/Consultants Involve: Curtis Carreon Discharge Summary PROCEDURES PERFORMED DURING STAY: None. ADMITTING DIAGNOSES: 1. Acute on chronic hypoxic respiratory failure 2/2 COPD 2. DM DISCHARGE DIAGNOSES: 1. Acute on chronic hypoxic respiratory failure 2/2 COPD 2. DM COMPLICATIONS/CHIEF COMPLAINT: Acute Respiratory Failure W Hypercapnia, Copd. HISTORY OF PRESENT ILLNESS: "The patient is a 53-year-old gentleman with a previous history of substance abuse as well as COPD who was transferred from [facility] for respiratory failure requiring intubation. The patient was admitted to the ICU under the shipping clerk service. The patient was extubated earlier today. He reports to me that he was having some cough with whitish sputum at home. Denies necessary fevers/chills or sweats. Denies any chest pain. No nausea or vomiting. Reports he was taking by mouth intake well. Denies any recent smoking. Reports a history of [id number] or more smoking but quit over 2 years ago. Denies any recent alcohol abusereports was drinking about 3 beers per night daily for a while but quit about couple of years ago. Denies any shortness of breath and this time. No dizziness or lightheadedness. No chest pain. Denies abdominal pain or any problems with constipation. Currently has a Obrien catheter in place." HOSPITAL COURSE: Patient's a 53-year-old male with past medical history of COPD, diabetes and substance abuse transfer from [facility] for respiratory failure requiring intubation. Patient was under shipping clerk and ICU care and was quickly extubated after arrival. Patient's breathing status has improved significantly and he stated that he feels like he is back to his baseline at home. Ideally, would like to keep patient with a more gradual steroid taper and monitoring post extubation. However, patient is persistent that he is ready to go home and wishes to go today. We'll discharge patient today on prednisone and antibiotics complete by mouth course at home and follow with PCP and pulmonology within 1 week. He is on 3 L O2 nasal cannula which is at his baseline at home. He denies any complaints. DISCHARGE MEDICATIONS: Please see below. ALLERGIES: Please see below. PHYSICAL EXAMINATION ON DISCHARGE: VITAL SIGNS: Please see below. General: No acute distress, Alert Eyes: Normal sclera, EOMI, ANAND HENT: Atraumatic, neck supple, moist mucous membranes Cardiovascular: Normal rate, normal rhythm. No murmurs appreciated. Pulmonary: Clear to auscultation b/l, no wheezing GI: Soft, nontender, nondistended Skin: Warm and dry Neuro: CN grossly intact. No focal deficits. Strengths equal b/l. Psych: oriented x 3 LABORATORY DATA: Please see below. IMAGING: CXR - The bibasilar atelectasis is unchanged. Lung hopkins otherwise clear. The patient is rotated. The endotracheal tube and nasogastric tube remain in satisfactory positions, unchanged. ACTIVITY: [As tolerated]. DIET: Low carb diet DISCHARGE PLAN: Complete course of PO prednisone and antibiotics. f/u with PCP and Pulm within 1 week. DISPOSITION: Home. ITEMS TO FOLLOWUP ON ON OUTPATIENT: 1. None. DISCHARGE CONDITION: [Stable]. TIME SPENT ON DISCHARGE: Greater than 30 minutes. Vital Signs/I&Os Vital Signs Date Time Temp Pulse Resp B/P (MAP) Pulse Ox O2 Delivery O2 Flow Rate FiO2 07/04/18 09:00 2.0 07/04/18 06:00 98.8 68 20 147/89 (108) 95 07/04/18 03:26 Nasal Cannula 07/02/18 10:00 35 I&O- Last 24 Hours up to 6 AM 07/04/18 06:00 Intake Total 2585 ml Output Total 0 ml Balance 2585 ml Laboratory Data Labs 24H Laboratory Tests 2 07/03/18 12:06: Bedside Glucose (Misc Panel) 186H 07/03/18 17:03: Bedside Glucose (Misc Panel) 174H 07/03/18 20:28: Bedside Glucose (Misc Panel) 197H 07/04/18 05:57: Immature Granulocyte % (Auto) 0.7, White Blood Count 7.1, Red Blood Count 4.99, Hemoglobin 14.8, Hematocrit 46.9, Mean Corpuscular Volume 94.0, Mean Corpuscular Hemoglobin 29.7, Mean Corpuscular Hemoglobin Concent 31.6L, Red Cell Distribution Width 12.2, Platelet Count 125L, Neutrophils (%) (Auto) 72.9H, Lymphocytes (%) (Auto) 15.2L, Monocytes (%) (Auto) 10.8H, Eosinophils (%) (Auto) 0.4, Basophils (%) (Auto) 0.0, Neutrophils # (Auto) 5.2, Lymphocytes # (Auto) 1.1L, Monocytes # (Auto) 0.8, Eosinophils # (Auto) 0.0, Basophils # (Auto) 0.0, Nucleated Red Blood Cells % (auto) 0.0, Anion Gap 3L, Glomerular Filtration Rate > 60.0, Blood Urea Nitrogen 22H, Creatinine 0.58L, Sodium Level 142, Potassium Level 4.6, Chloride Level 100, Carbon Dioxide Level 39H, Calcium Level 8.0L, Phosphorus Level 4.2, Aspartate Amino Transf (AST/SGOT) 8, Alanine Aminotransferase (ALT/SGPT) 29, Lactate Dehydrogenase 135, Total Creatine Kinase 65, Alkaline Phosphatase 44L, Total Bilirubin 0.4#, Triglycerides Level 172H, Cholesterol Level 163, Total Protein 5.7L, Albumin 3.2, Albumin/Globulin Ratio 1.28 07/04/18 11:23: Bedside Glucose (Misc Panel) 143H CBC/BMP Laboratory Tests 07/04/18 05:57 Red Blood Count 4.99, Mean Corpuscular Volume 94.0, Mean Corpuscular Hemoglobin 29.7, Mean Corpuscular Hemoglobin Concent 31.6 L, Red Cell Distribution Width 12.2, Neutrophils (%) (Auto) 72.9 H, Lymphocytes (%) (Auto) 15.2 L, Monocytes (%) (Auto) 10.8 H, Eosinophils (%) (Auto) 0.4, Basophils (%) (Auto) 0.0, Neutrophils # (Auto) 5.2, Lymphocytes # (Auto) 1.1 L, Monocytes # (Auto) 0.8, Eosinophils # (Auto) 0.0, Basophils # (Auto) 0.0, Calcium Level 8.0 L, Phosphorus Level 4.2, Aspartate Amino Transf (AST/SGOT) 8, Alanine Aminotransferase (ALT/SGPT) 29, Lactate Dehydrogenase 135, Total Creatine Kinase 65, Alkaline Phosphatase 44 L, Total Bilirubin 0.4 #, Triglycerides Level 172 H, Cholesterol Level 163, Total Protein 5.7 L, Albumin 3.2 FSBS Laboratory Tests Test 07/03/18 12:06 07/03/18 17:03 07/03/18 20:28 07/04/18 11:23 Range/Units Bedside Glucose (Misc Panel) 186 174 197 143 70-105 MG/DL Discharge Medications Scheduled Hydrochlorothiazide (Hydrochlorothiazide) 12.5 Mg Tablet, 12.5 MG PO DAILY, (Reported) Ipratropium/Albuterol Sulfate (Iprat-Albut 0.5-3(2.5) mg/3 ml) 3 Ml Ampul.neb, 1 ALYCIA INH QID, (Reported) Levofloxacin (Levaquin) 500 Mg Tablet, 500 MG PO DAILY Metformin HCl (Metformin HCl) 1,000 Mg Tablet, 1,000 MG PO BID, (Reported) Prednisone (Prednisone) 20 Mg Tablet, 40 MG PO DAILY Scheduled PRN Fluticasone Propionate (Fluticasone Propionate) 16 Gm [place].susp, 1 SPRAY NA BID PRN for CONGESTION, (Reported) Miscellaneous Medications [Patient Comments] , (Reported) PATIENT IS INTUBATED AT THIS TIME (0425) NO RELATIVES OR VISITORS PRESENT. MEDICATIONS LISTED ARE AVAILABLE AND ACTIVE AT HIS PHARMACY Allergies Coded Allergies: levofloxacin (Verified Allergy, Intermediate, RASH, 07/01/18) MARTHA LUNA MD Jul 04, 2018 11:36
== END 2018-07-04 13:38 | disposition home or self-care (01) | DRG 208 ==
LOC: M ED 02:45 → M ED INP 04:15 → M ICU 06:10 → M MSPAV 07-03 10:32
PROVIDERS: ADMIT Internal Medicine Pulmonary Disease; ATTEND Student in an Organized Health Care Education/Training Program
PROC: 5A1945Z Respiratory Ventilation, 24-96 Consecutive Hours (ICD-10-PCS; principal; 2018-07-01)
DX: J96.21 Acute and chronic respiratory failure with hypoxia (principal); J44.1 Chronic obstructive pulmonary disease with (acute) exacerbation; J96.22 Acute and chronic respiratory failure with hypercapnia; E11.9 Type 2 diabetes mellitus without complications; R91.8 Other nonspecific abnormal finding of lung field; E83.39 Other disorders of phosphorus metabolism; Z99.81 Dependence on supplemental oxygen; Z87.891 Personal history of nicotine dependence; Z79.82 Long term (current) use of aspirin; Z79.899 Other long term (current) drug therapy; Z88.1 Allergy status to other antibiotic agents

== ENCOUNTER 2018-10-21 14:58 | Inpatient (IN) | payer MEDICARE ==
[~2018-10-21] VITALS: Ht 182.9 cm; Wt 107.6 kg
[~2018-10-21 14:58] MED LIST changes: +FLON1SPR NARES; +FLUTISP; +HYDR12.55 PO; +IPRA0.00 INH; +LEVA1TAB2 PO; +METF-877 PO; +PATIENT COMMENTS
[2018-10-21 17:50] VITALS: BP 164/80
[2018-10-21] MEDS ORDERED: AMLO5TAB6 PO (18:29)
[2018-10-21] MEDS ORDERED: OXYC1TAB23 PO (18:29)
[2018-10-21] MEDS ORDERED: BUDE0.5S6 INH (18:29)
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
[2018-10-21] MEDS ORDERED: DEXTROSE 50% 50 ML SYRINGE IV PRN (18:45)
[2018-10-21] MEDS ORDERED: GLUCAGON FOR INJ 1 MG VIAL (J1610) SC PRN (18:45)
[2018-10-21] MEDS ORDERED: IPRATROPIUM 0.5MG/ALBUTEROL 2.5MG INH SOL UD 3ML (DUONEB)(J7620) NEB PRN (18:45)
[2018-10-21] MEDS ORDERED: GLUCOSE 4 GM CHEW TABLET PO PRN (18:45)
[2018-10-21 19:40] LABS: HEMATOCRIT 41.3 % (42.0-52.0); HEMOGLOBIN 13.1 g/dl (13.5-17.5); MEAN CORPUSCULAR HEMOGLOBIN 29.2 pg (27.0-33.0); MEAN CORPUSCULAR HGB CONC 31.7 g/dl (32.0-36.5); PLATELET COUNT, AUTOMATED 173 10^3/uL (150-450); RED BLOOD COUNT 4.49 10^6/uL (4.30-6.10); WHITE BLOOD COUNT 11.3 10^3/uL (4.0-10.0)
[2018-10-21] MEDS: NS 1,000 ML IV SCH (19:55)
--- NOTE | 2018-10-21 20:03 | REPVR ---
EXAM: CT Chest Without Contrast EXAM DATE/TIME: 10/21/2018 6:49 PM CLINICAL HISTORY: 53 years old, male; Chest wall pain; Additional info: [place] TECHNIQUE: Imaging protocol: Axial computed tomography images of the chest without intravenous contrast. Coronal and sagittal reformatted images were created and reviewed. Radiation optimization: All CT scans at this facility use at least one of these dose optimization techniques: automated exposure control; mA and/or kV adjustment per patient size (includes targeted exams where dose is matched to clinical indication); or iterative reconstruction. COMPARISON: CR PORTABLE CHEST X-RAY 07/02/2018 6:44 AM FINDINGS: Lungs: Pulmonary vascular/interstitial pattern does not suggest active pulmonary edema. Pleural space: Small dependent transient density right pleural effusion. No pneumothorax. Atelectasis changes are present adjacent to the right pleural effusion. No central endobronchial lesion or convincing airspace process. Large right middle lobe calcified granuloma is present. No concerning lung lesion. Heart: No evidence of significant cardiac enlargement or pericardial effusion. Aorta: Mild atherosclerotic change in aorta without dilatation. Lymph nodes: Small, nonspecific mediastinal and hilar nodes are present. Some of these are calcified Bones/joints: Diffuse idiopathic skeletal hyperostosis (DISH) changes are present. Liver: Liver is enlarged and decreased in density suggesting hepatic steatosis. Spleen: Spleen is diffusely enlarged, without focal lesion. Other findings: Somewhat limited study without IV contrast. IMPRESSION: 1. Small dependent transudate density right pleural effusion with adjacent atelectasis. No underlying pulmonary edema or convincing evidence of pneumonia. This may reflect nonspecific pleural inflammation. 2. Prominent mediastinal and hilar lymph nodes with calcification, and lingular granuloma, suggesting prior granulomatous exposure. 3. Hepatosplenomegaly and hepatic steatosis Electronically signed by: Jose Juan Becker On 10/21/2018 20:02:57 PM
[2018-10-21 20:12] LABS: CALCIUM LEVEL 7.9 MG/DL (8.5-10.1); CREATININE FOR GFR 5.14 MG/DL (0.70-1.30); GLOMERULAR FILTRATION RATE 12.6 (>56); POTASSIUM SERUM 4.5 MEQ/L (3.5-5.1)
[2018-10-21] MEDS: BUDESONIDE 180MCG INHALER (PULMICORT FLEXHALER) INH SCH (20:14)
[2018-10-21] MEDS: IPRATROPIUM 0.5MG/ALBUTEROL 2.5MG INH SOL UD 3ML (DUONEB)(J7620) NEB SCH (20:15)
[2018-10-21 20:19] LABS: ALBUMIN 2.6 GM/DL (3.2-5.2); ALT/SGPT 26 U/L (12-78); BILIRUBIN,DIRECT 0.2 MG/DL (0.0-0.2); BILIRUBIN,TOTAL 0.4 MG/DL (0.2-1.0); TOTAL PROTEIN 5.2 GM/DL (6.4-8.2)
[2018-10-21] MEDS: PERCOCET 5MG/325MG TAB PO PRN (20:35)
[2018-10-21] MEDS: HumaLOG INSULIN (NovoLOG) PER UNIT SC SCH (20:54)
[2018-10-21 22:00] VITALS: BP 140/89
--- NOTE | 2018-10-22 00:35 | REPVR ---
EXAM: CT Abdomen and Pelvis Without Contrast EXAM DATE/TIME: 10/21/2018 6:49 PM CLINICAL HISTORY: 53 years old, male; Abdominal pain; Additional info: [place] TECHNIQUE: Imaging protocol: Axial computed tomography images of the abdomen and pelvis without contrast. Coronal and sagittal reformatted images were created and reviewed. Radiation optimization: All CT scans at this facility use at least one of these dose optimization techniques: automated exposure control; mA and/or kV adjustment per patient size (includes targeted exams where dose is matched to clinical indication); or iterative reconstruction. COMPARISON: CT ABD/PELVIS W/ CONTRAST - OUTSIDE PRIOR 12/04/2011 1:16 PM FINDINGS: Pleural space: Small right pleural effusion with adjacent atelectasis and granulomatous change. Liver: Liver is enlarged and decreased in density suggesting hepatic steatosis. Gallbladder and bile ducts: Gallbladder is present and shows no evidence of gallstone. Pancreas: Noncontrast pancreas shows no obvious mass or adjacent fluid. Spleen: Spleen is diffusely enlarged, without focal lesion. Adrenals: Adrenal glands are normal in appearance. Kidneys and ureters: Kidneys show no stone or hydronephrosis. Stomach and bowel: No evidence of small bowel obstruction. Moderate pattern of colonic stool is present. No evidence of acute diverticulitis. Appendix: Normal caliber appendix is identified, with no adjacent inflammation. Intraperitoneal space: No pneumoperitoneum. No abnormal pelvic mass. Vasculature: Atherosclerotic change present in the aorta, without aneurysm. Lymph nodes: No enlarged lymph nodes. Bladder: Bladder appears normal. Reproductive: Unremarkable as visualized. Bones/joints: Bony structures show no acute fracture or destructive process. Soft tissues: Unremarkable. Other findings: Limited evaluation without enteric or IV contrast. IMPRESSION: 1. Limited study without the benefit of IV or enteric contrast. 2. Hepatosplenomegaly and hepatic steatosis. 3. Large volume of colonic stool suggesting an element of constipation Electronically signed by: Jose Juan Becker On 10/22/2018 00:34:55 AM
[2018-10-22] MEDS: IPRATROPIUM 0.5MG/ALBUTEROL 2.5MG INH SOL UD 3ML (DUONEB)(J7620) NEB SCH ×7 (04:00→23:53)
[2018-10-22 06:00] VITALS: BP 150/84
[2018-10-22 06:18] LABS: HEMATOCRIT 39.8 % (42.0-52.0); HEMOGLOBIN 12.4 g/dl (13.5-17.5); MEAN CORPUSCULAR HEMOGLOBIN 28.9 pg (27.0-33.0); MEAN CORPUSCULAR HGB CONC 31.2 g/dl (32.0-36.5); MEAN CORPUSCULAR VOLUME 92.8 fl (80.0-96.0); PLATELET COUNT, AUTOMATED 150 10^3/uL (150-450); RED BLOOD COUNT 4.29 10^6/uL (4.30-6.10); WHITE BLOOD COUNT 8.2 10^3/uL (4.0-10.0)
[2018-10-22] MEDS: NS 1,000 ML IV SCH (06:22)
[2018-10-22] MEDS: PERCOCET 5MG/325MG TAB PO PRN ×2 (06:25→21:27)
[2018-10-22 06:39] LABS: CALCIUM LEVEL 8.6 MG/DL (8.5-10.1); CREATININE FOR GFR 5.43 MG/DL (0.70-1.30); GLOMERULAR FILTRATION RATE 11.8 (>56); POTASSIUM SERUM 4.3 MEQ/L (3.5-5.1)
[2018-10-22] MEDS: HumaLOG INSULIN (NovoLOG) PER UNIT SC SCH ×4 (07:30→21:27)
[2018-10-22] MEDS: BUDESONIDE 180MCG INHALER (PULMICORT FLEXHALER) INH SCH ×2 (07:40→19:45)
[2018-10-22] MEDS: amLODIPine 5 MG TAB PO SCH (09:12)
[2018-10-22 10:31] LABS: CHOLESTEROL RISK RATIO 5.583 (<5); VANCOMYCIN RANDOM 27.9 UG/ML
[2018-10-22 10:56] LABS: HEPATITIS B SURFACE ANTIBODY NEGATIVE (POSITIVE)
[2018-10-22 11:06] LABS: HEPATITIS B SURFACE ANTIGEN NEGATIVE (NEGATIVE)
[2018-10-22 11:35] LABS: HEPATITIS B CORE ANTIBODY IGM NEGATIVE (NEGATIVE); HEPATITIS C VIRUS ABY INDEX 0.1 INDEX (<0.8)
[2018-10-22] MEDS ORDERED: FUROSEMIDE 40 MG/4 ML VIAL (J1940) IV ONE (12:45)
[2018-10-22 14:00] VITALS: BP 160/82
[2018-10-22] MEDS: methylPREDNISolone INJ 125 MG/2 ML VIAL (J2930) IV SCH (14:22)
--- NOTE | 2018-10-22 15:05 | IPNPDOC ---
Text Note Date of Service The patient was seen on 10/22/18. NOTE Subjective: Patient seen and examined at bedside. No acute overnight events reported. No new medical complaints this morning. Objective: VITAL SIGNS: See below GENERAL APPEARANCE: NAD, lying comfortably in bed, disheveled HEENT: NC/AT, EOMI CARDIOVASCULAR: +S1S2, RRR LUNGS: CTA B/L ABDOMEN: soft, NT, distended, +BS EXTREMITIES: bandages b/l UE LABORATORY DATA: See below. MICROBIOLOGY: Please see below. ASSESSMENT: 53 yo male transferred from [facility] for worsening SAV. #SAV - CT A/P shows no obstruction - nephrology consultation pending - hepatitis panel noted #wound care - holding off abx for now - continue with wound care #COPD - supplemental O2 - 3L at baseline - respiratory treatments #DM - insulin sliding scale in hospital - metformin on hold #HTN - HCTZ on hold - continue norvasc - ACEI if renal function improves #recreational drug use - patient admits to occasional use of cocaine, marijuana - unable to provide last use, or frequency #DVT prophylaxis - mechanical VS,Fishbone, I+O VS, Fishbone, I+O Laboratory Tests 10/21/18 19:17 Red Blood Count 4.49, Mean Corpuscular Volume 92.0, Mean Corpuscular Hemoglobin 29.2, Mean Corpuscular Hemoglobin Concent 31.7 L, Red Cell Distribution Width 13.3, Calcium Level 7.9 L 10/22/18 05:39 Red Blood Count 4.29 L, Mean Corpuscular Volume 92.8, Mean Corpuscular Hemoglobin 28.9, Mean Corpuscular Hemoglobin Concent 31.2 L, Red Cell Distribution Width 13.2 Vital Signs Date Time Temp Pulse Resp B/P (MAP) Pulse Ox O2 Delivery O2 Flow Rate FiO2 10/22/18 14:00 97.1 80 17 160/82 (108) 96 3.0 I&O- Last 24 Hours up to 6 AM 10/22/18 06:00 Intake Total 958 ml Output Total 0 ml Balance 958 ml YOSELIN SORIA MD Oct 22, 2018 15:05
[2018-10-22 22:00] VITALS: BP 166/70
[2018-10-23] MEDS: methylPREDNISolone INJ 125 MG/2 ML VIAL (J2930) IV SCH ×2 (01:13→12:27)
[2018-10-23] MEDS: IPRATROPIUM 0.5MG/ALBUTEROL 2.5MG INH SOL UD 3ML (DUONEB)(J7620) NEB SCH ×5 (02:59→20:00)
[2018-10-23 06:00] VITALS: BP 138/64
[2018-10-23] MEDS: BUDESONIDE 180MCG INHALER (PULMICORT FLEXHALER) INH SCH ×2 (07:46→21:00)
[2018-10-23 08:12] LABS: HEMATOCRIT 38.9 % (42.0-52.0); HEMOGLOBIN 12.9 g/dl (13.5-17.5); MEAN CORPUSCULAR HEMOGLOBIN 28.4 pg (27.0-33.0); MEAN CORPUSCULAR HGB CONC 33.2 g/dl (32.0-36.5); MEAN CORPUSCULAR VOLUME 85.5 fl (80.0-96.0); PLATELET COUNT, AUTOMATED 190 10^3/uL (150-450); RED BLOOD COUNT 4.55 10^6/uL (4.30-6.10); WHITE BLOOD COUNT 4.9 10^3/uL (4.0-10.0)
[2018-10-23 08:37] LABS: CALCIUM LEVEL 8.4 MG/DL (8.5-10.1); CREATININE FOR GFR 5.27 MG/DL (0.70-1.30); GLOMERULAR FILTRATION RATE 12.2 (>56); POTASSIUM SERUM 4.5 MEQ/L (3.5-5.1)
[2018-10-23] MEDS: HumaLOG INSULIN (NovoLOG) PER UNIT SC SCH ×4 (09:32→22:43)
[2018-10-23] MEDS: PERCOCET 5MG/325MG TAB PO PRN (09:34)
[2018-10-23] MEDS: amLODIPine 5 MG TAB PO SCH (09:37)
[2018-10-23 10:02] LABS: PHOSPHORUS LEVEL 4.7 MG/DL (2.5-4.9); VANCOMYCIN RANDOM 21.4 UG/ML
--- NOTE | 2018-10-23 11:27 | IPNPDOC ---
Text Note Date of Service The patient was seen on 10/23/18. NOTE Subjective: Patient seen and examined at bedside. No acute overnight events reported. No new medical complaints this morning. Objective: VITAL SIGNS: See below GENERAL APPEARANCE: NAD, lying comfortably in bed, disheveled HEENT: NC/AT, EOMI CARDIOVASCULAR: +S1S2, RRR LUNGS: CTA B/L ABDOMEN: soft, NT, distended, +BS EXTREMITIES: bandages b/l UE LABORATORY DATA: See below. MICROBIOLOGY: Please see below. ASSESSMENT: 53 yo male transferred from [facility] for worsening SAV. #SAV - CT A/P shows no obstruction - nephrology consultation pending - hepatitis panel noted - improved today - off fluids - s/p IV steroids, lasix #abrasions - do not appear to be infected - continue dressing changes - holding off abx for now - continue with wound care #COPD - supplemental O2 - 3L at baseline - respiratory treatments #DM - insulin sliding scale in hospital - metformin on hold #HTN - HCTZ on hold - continue norvasc - no ACEI given SAV #recreational drug use - patient admits to occasional use of cocaine, marijuana - unable to provide last use, or frequency #DVT prophylaxis - mechanical VS,Fishbone, I+O VS, Fishbone, I+O Laboratory Tests 10/23/18 07:36 Red Blood Count 4.55, Mean Corpuscular Volume 85.5, Mean Corpuscular Hemoglobin 28.4, Mean Corpuscular Hemoglobin Concent 33.2, Red Cell Distribution Width 12.6, Calcium Level 8.4 L Vital Signs Date Time Temp Pulse Resp B/P (MAP) Pulse Ox O2 Delivery O2 Flow Rate FiO2 10/23/18 10:04 18 3.0 10/23/18 09:37 82 132/68 10/23/18 06:00 97.4 94 I&O- Last 24 Hours up to 6 AM 10/23/18 06:00 Intake Total 3130 ml Output Total 0 ml Balance 3130 ml YOSELIN SORIA MD Oct 23, 2018 11:27
[2018-10-23 13:02] LABS: INR 1.09; PROTHROMBIN TIME 13.8 SECONDS (11.8-14.0)
[2018-10-23 14:00] VITALS: BP 158/76
[2018-10-23] MEDS ORDERED: diphenhydrAMINE INJ 50MG/ML VIAL (J1200) As Ordered ONE (15:10)
[2018-10-23] MEDS ORDERED: LIDOCAINE 1% MDV 20ML VIAL As Ordered ONE (15:10)
[2018-10-23] MEDS ORDERED: HEPARIN 1,000 UNITS/ML 10ML VIAL (FOR RADIOLOGY& DIALYSIS ONLY) As Ordered ONE (15:11)
[2018-10-23] MEDS ORDERED: fentaNYL 100 MCG/2 ML INJECTION (J3010) As Ordered ONE (15:42)
--- NOTE | 2018-10-23 17:03 | POST-OPPD ---
Postoperative Procedure Note Date Of Procedure: Oct 23, 2018 Time Of Procedure: 17:01 PREOPERATIVE DIAGNOSIS: renal failure POSTOPERATIVE DIAGNOSIS: renal failure FINDINGS: patent right IJ PROCEDURE: right IJ vascath. catheter ready for HD SURGEON: yadira ESTIMATED BLOOD LOSS: < 15 ml COMPLICATIONS: none POSTOPERATIVE CONDITION: stable NAHOMI MENDENHALL MD Oct 23, 2018 17:03
--- NOTE | 2018-10-23 17:20 | REP ---
IR Vas cath placement. Vas cath placement using fluoroscopy and ultrasound guidance. Ultrasound of the right neck. Clinical information: Renal failure. Physician: Dr. Harris. Procedure: The patient was advised of the benefits, risks and alternatives of the procedure and informed consent was obtained. The time-out was performed with verification of the patient's name, MRN, site of procedure and type of procedure to be performed. The patient was positioned in the supine position on the angiographic table. The site was prepped and draped in the usual sterile fashion. Moderate sedation was not appropriate. Fentanyl was administered for analgesia. The physician spent 45 minutes of continuous face to face time with the patient. A freight elevator operator radiograph reveals no gross abnormality. Preliminary ultrasound of the right neck demonstrates patent compressible right internal jugular vein. Local anesthesia using lidocaine was administered. A small incision was made above the clavicle. Using ultrasound guidance the right internal jugular vein was accessed using a lateral approach with a micro introduce needle. An 018 wire was advanced into the superior vena cava. The needle was removed and a micro introducer sheath was placed. An Amplatz wire was then passed into the inferior vena cava. The tract was dilated. A Schon temporary dialysis catheter was inserted over the wire under fluoroscopy guidance. The catheter tip was positioned at the cavo atrial junction and the wire was removed. All lumens flush and aspirate freely. The catheter was locked with high dose heparin. The catheter was sutured to the skin with 2-0 Prolene. A sterile dressing was then applied. The patient tolerated the procedure well and was returned to the PRU in stable condition. EBL: < 5 ml. Complications: None. Conclusion: 1. Successful placement of a Schon temporary dialysis catheter via the right internal jugular vein. The catheter is ready for immediate use. 2. If the patient requires superintendent container terminal dialysis, please refer back to me for conversion to Perma-Cath prior to discharge. Thank you this referral. Electronically Signed by Mary Harris MD 10/23/2018 05:19 P
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
[2018-10-24] MEDS: IPRATROPIUM 0.5MG/ALBUTEROL 2.5MG INH SOL UD 3ML (DUONEB)(J7620) NEB SCH ×6 (00:45→20:00)
[2018-10-24] MEDS: methylPREDNISolone INJ 125 MG/2 ML VIAL (J2930) IV SCH (01:27)
[2018-10-24 06:00] VITALS: BP 156/77
[2018-10-24 06:01] LABS: HEMATOCRIT 38.9 % (42.0-52.0); HEMOGLOBIN 12.6 g/dl (13.5-17.5); MEAN CORPUSCULAR HEMOGLOBIN 28.3 pg (27.0-33.0); MEAN CORPUSCULAR HGB CONC 32.4 g/dl (32.0-36.5); MEAN CORPUSCULAR VOLUME 87.4 fl (80.0-96.0); PLATELET COUNT, AUTOMATED 185 10^3/uL (150-450); RED BLOOD COUNT 4.45 10^6/uL (4.30-6.10)
[2018-10-24 06:28] LABS: CALCIUM LEVEL 9.1 MG/DL (8.5-10.1); CREATININE FOR GFR 3.23 MG/DL (0.70-1.30); GLOMERULAR FILTRATION RATE 21.5 (>56); POTASSIUM SERUM 4.7 MEQ/L (3.5-5.1); VANCOMYCIN RANDOM 11.9 UG/ML
[2018-10-24] MEDS: BUDESONIDE 180MCG INHALER (PULMICORT FLEXHALER) INH SCH ×2 (07:17→21:00)
[2018-10-24] MEDS: amLODIPine 5 MG TAB PO SCH (08:02)
[2018-10-24] MEDS: PERCOCET 5MG/325MG TAB PO PRN (08:03)
[2018-10-24] MEDS: HumaLOG INSULIN (NovoLOG) PER UNIT SC SCH ×4 (08:04→20:53)
[2018-10-24] MEDS ORDERED: HEPARIN 1,000 UNITS/ML 10ML VIAL (FOR RADIOLOGY& DIALYSIS ONLY) IV ONE (11:30)
[2018-10-24] MEDS ORDERED: HEPARIN 1,000 UNITS/ML 10ML VIAL (FOR RADIOLOGY& DIALYSIS ONLY) XX ONE (11:30)
[2018-10-24] MEDS: predniSONE 20 MG TAB PO SCH (12:37)
--- NOTE | 2018-10-24 13:02 | IPNPDOC ---
Text Note Date of Service The patient was seen on 10/24/18. NOTE Subjective: Patient seen and examined at bedside. No acute overnight events reported. No new medical complaints this morning. Objective: VITAL SIGNS: See below GENERAL APPEARANCE: NAD, lying comfortably in bed, disheveled HEENT: NC/AT, EOMI CARDIOVASCULAR: +S1S2, RRR LUNGS: CTA B/L ABDOMEN: soft, NT, distended, +BS EXTREMITIES: multiple well healing abrasions on b/l upper and lower extremities LABORATORY DATA: See below. MICROBIOLOGY: Please see below. ASSESSMENT: 53 yo male transferred from [facility] for worsening SAV. #SAV - possibly secondary to vanc/zos vs interstitial nephritis - CT A/P shows no obstruction - nephrology consultation appreciated - hepatitis panel noted - right IJ temporary HD catheter place - s/p HD yesterday - continue steroids, plan for HD 3 hours today - plan to monitor over weekend for improvement #abrasions - do not appear to be infected - dressings off - topical care - continue with wound care #COPD - supplemental O2 - 3L at baseline - respiratory treatments #DM - insulin sliding scale in hospital - metformin on hold #HTN - HCTZ on hold - continue norvasc - no ACEI given SAV #recreational drug use - patient admits to occasional use of cocaine, marijuana - unable to provide last use, or frequency #DVT prophylaxis - mechanical VS,Fishbone, I+O VS, Fishbone, I+O Laboratory Tests 10/24/18 05:15 Red Blood Count 4.45, Mean Corpuscular Volume 87.4, Mean Corpuscular Hemoglobin 28.3, Mean Corpuscular Hemoglobin Concent 32.4, Red Cell Distribution Width 12.8, Calcium Level 9.1 Vital Signs Date Time Temp Pulse Resp B/P (MAP) Pulse Ox O2 Delivery O2 Flow Rate FiO2 10/24/18 11:07 95 2.0 10/24/18 08:33 18 10/24/18 08:02 74 142/73 10/24/18 06:00 98.5 I&O- Last 24 Hours up to 6 AM 10/24/18 06:00 Intake Total 1800 ml Output Total 500 ml Balance 1300 ml YOSELIN SORIA MD Oct 24, 2018 13:02
[2018-10-24 18:00] VITALS: BP 140/60
--- NOTE | 2018-10-24 19:39 | IPN ---
DATE: 10/23/2018 SUBJECTIVE: The patient was seen and examined at the at the bedside today, morning. He was started on steroids yesterday for chronic obstructive pulmonary disease (COPD) exacerbation. He reports that his breathing is significantly better today as compared with yesterday. Urine output is not recorded. However, looks like the patient is nonoliguric. There is no significant improvement in the renal function. Creatinine has been fluctuating above 5. Vancomycin level is still above 20. I discussed with the patient about starting dialysis earlier to get rid of vancomycin toxicity to help improve the renal function, and he agreed for initiation of hemodialysis. OBJECTIVE: Vital signs: Temperature is 98.5 degrees Fahrenheit, blood pressure 158/76, pulse is 87, respiratory rate of 16, saturating 92% on 3 liters via nasal cannula. Intake and output: Urine output is not recorded. The patient had five voids so far since overnight. Weight on the bed scale was 107.6 kg yesterday. PHYSICAL EXAMINATION: General: The patient is awake, alert, oriented times three. He is obese, sitting up in the bed. No apparent distress. Head and neck exam: Extraocular muscles intact. Pupils equally round and reactive to light. Mucous membranes are moist. Neck is supple. There is no jugular venous distention (JVD). Cardiovascular: S1, S2, trace edema of the bilateral lower extremities. Respiratory: Mild expiratory rhonchi at the bases. Bilateral equal air entry. Breathing is significantly better today as compared with yesterday. Abdomen: Soft, obese, positive bowel sounds. Nontender. No organomegaly. Genitourinary: Bladder is not palpable. Musculoskeletal: No clubbing or cyanosis. Pulses are 2+. Central nervous system (CANAL EQUIPMENT MECHANIC): No focal deficit. Power is 5/5 in all extremities. LAB REVIEW: CBC showed a WBC of 4.9, hemoglobin 12.9, platelets are 190, INR is 1.09. BMP today showed sodium 140, potassium 4.5, chloride 100, bicarbonate is 34, BUN 54, creatinine is 5.2, calcium 8.4, phosphorus is 4.7. Vancomycin level is 21.4 today. Microbiology: Blood cultures are negative so far. CURRENT INPATIENT MEDICATIONS: The patient's medications were all reviewed by me. He continues to be on the same medications as yesterday except that Solu-Medrol was added yesterday in the evening. ASSESSMENT/PLAN: 1. Acute renal failure, most likely it is medication including vancomycin and Zosyn that the patient was given over there. The patient has nonoliguric renal failure and persistent vancomycin toxicity. There have been case reports that if vancomycin is removed with long high-flux dialysis, that it helps with improvement of renal function. I discussed this with the patient, and he agreed for initiation of hemodialysis to help improve his kidney function. Although his electrolytes are within the acceptable range at this at this time, I am going to have the temporary non-tunneled hemodialysis catheter placed. I would dialyze the patient for 4 hours today with F180 dialyzer to get vancomycin out of his system and hopefully patient's renal function should improve over the next few days. 2. Acute COPD exacerbation. Continue the DuoNeb nebulizations. He was started on Solu-Medrol, which has helped improve his shortness of breath significantly better. 3. Hypertension. Continue current dose of amlodipine 5 mg by mouth daily. 4. Skin abrasion. Continue local wound care. IV antibiotics have been stopped because of acute renal failure. Vancomycin level is already therapeutic, which should cover him for gram-positive infections anyways.
[2018-10-24 22:00] VITALS: BP 128/62
[2018-10-25] MEDS: IPRATROPIUM 0.5MG/ALBUTEROL 2.5MG INH SOL UD 3ML (DUONEB)(J7620) NEB SCH ×6 (04:00→20:20)
[2018-10-25 06:00] VITALS: BP 137/72
[2018-10-25 06:44] LABS: HEMATOCRIT 37.8 % (42.0-52.0); HEMOGLOBIN 12.1 g/dl (13.5-17.5); MEAN CORPUSCULAR HEMOGLOBIN 27.9 pg (27.0-33.0); MEAN CORPUSCULAR VOLUME 87.3 fl (80.0-96.0); PLATELET COUNT, AUTOMATED 161 10^3/uL (150-450); RED BLOOD COUNT 4.33 10^6/uL (4.30-6.10)
[2018-10-25 07:05] LABS: CALCIUM LEVEL 8.2 MG/DL (8.5-10.1); CREATININE FOR GFR 2.7 MG/DL (0.70-1.30); GLOMERULAR FILTRATION RATE 26.4 (>56); POTASSIUM SERUM 4.5 MEQ/L (3.5-5.1); VANCOMYCIN RANDOM 7.4 UG/ML
[2018-10-25] MEDS: BUDESONIDE 180MCG INHALER (PULMICORT FLEXHALER) INH SCH ×2 (07:08→21:00)
[2018-10-25] MEDS: HumaLOG INSULIN (NovoLOG) PER UNIT SC SCH ×4 (07:29→21:38)
[2018-10-25] MEDS: predniSONE 20 MG TAB PO SCH (09:06)
[2018-10-25] MEDS: amLODIPine 5 MG TAB PO SCH (09:08)
[2018-10-25] MEDS: PERCOCET 5MG/325MG TAB PO PRN ×2 (09:09→18:32)
--- NOTE | 2018-10-25 10:01 | IPN ---
DATE OF SERVICE: 10/24/2018 SUBJECTIVE: The patient was seen and examined at the bedside today morning. The patient was dialyzed yesterday for the first time for 4 hours because of vancomycin toxicity. He tolerated the procedure well. His vancomycin level has come down to 11 now. The patient is nonoliguric. There is drop in the creatinine. However, it is because of the effective dialysis. Patient reports that he felt better after getting the hemodialysis. The patient was getting the dressing change on the forearm skin lacerations when I saw him in the morning. OBJECTIVE: Vital signs: Temperature is 98.5 degree Fahrenheit. Blood pressure 142/73, pulse is 74, respiratory rate of 18, saturating 95% on 2 liters by nasal cannula. Intake and output: Ultrafiltration with hemodialysis was 500 mL yesterday. There are only voids recorded. There is no urine output recorded. Weight on the bed scale is not available. PHYSICAL EXAMINATION: General: The patient is awake, alert, oriented x3, sitting up in the bed in no apparent distress. Head and neck exam: Extraocular muscles intact. Pupils equally round and reactive to light. Mucous membranes are moist. Neck is supple. There is no JVD. He has a right IJ non-tunneled hemodialysis catheter. Cardiovascular: S1, S2, regular rate. No edema of the bilateral lower extremities. Respiratory: Chest is clear to auscultation bilaterally. Bilateral equal air entry. No rales or rhonchi. Abdomen: Soft. Positive bowel sounds. Nontender. No organomegaly. Musculoskeletal: No clubbing or cyanosis. Pulses are 2+. LOG TUMBLER: No focal deficit. Power is 5/5 in all extremities. LAB REVIEW: CBC showed WBC of 8, hemoglobin 12.6, platelets are 185. BMP showed sodium 139, potassium 4.7, chloride 105, bicarb 33, BUN 42, creatinine is 3.2, calcium is 9.1. Toxicology: Random vancomycin level was 11.9 today morning. CURRENT INPATIENT MEDICATIONS: The patient's medications were all reviewed by me. His Solu-Medrol has been stopped. The patient has been started on prednisone 40 mg p.o. daily starting tomorrow morning. ASSESSMENT/PLAN: 1. Acute renal failure. The patient most likely has drug induced nephrotoxicity although no biopsy is done given is planned urine and recent administration of vancomycin and Zosyn together and history of acute kidney injury in the past as well while he was in intensive care unit. The patient is nonoliguric. He was started on dialysis yesterday to removed vancomycin level from his system. Four hour session was done yesterday. He will get another session of dialysis for 3 hours. Fluid removal will be only 500 mL. 2. Vancomycin toxicity. Vancomycin level is 11 today. I am hopeful that with further dialysis today, his level should be less than 5 by tomorrow morning. The patient will be evaluated tomorrow morning again for any further need of hemodialysis. 3. Acute chronic obstructive pulmonary disease (COPD) exacerbation. The patient's symptoms are significantly better. He continues to be nebulizations. IV Solu-Medrol has been stopped. I have started the patient on prednisone 40 mg p.o. daily. 4. Diabetes mellitus type 2. Continue insulin sliding scale. 5. Hypertension. Blood pressure is within the acceptable range. Continue current dose of amlodipine. Optimization of fluid status with dialysis would also help improve the blood pressure. MTDD
--- NOTE | 2018-10-25 13:04 | IPNPDOC ---
Text Note Date of Service The patient was seen on 10/25/18. NOTE Subjective: Patient seen and examined at bedside. No acute overnight events reported. No new medical complaints this morning. Objective: VITAL SIGNS: See below GENERAL APPEARANCE: NAD, sitting comfortably at edge of bed, talkative, disheveled HEENT: NC/AT, EOMI CARDIOVASCULAR: +S1S2, RRR LUNGS: CTA B/L ABDOMEN: soft, NT, distended, +BS EXTREMITIES: multiple well healing abrasions on b/l upper and lower extremities LABORATORY DATA: See below. MICROBIOLOGY: Please see below. ASSESSMENT: 53 yo male transferred from [facility] for worsening SAV. #SAV - possibly secondary to vanc/zos vs interstitial nephritis - CT A/P shows no obstruction - nephrology consultation appreciated - hepatitis panel noted - right IJ temporary HD catheter place - s/p HD x 2 sessions - continue steroids - plan to monitor over weekend for improvement #abrasions - do not appear to be infected - dressings off - topical care - continue with wound care #COPD - supplemental O2 - 3L at baseline - respiratory treatments #DM - insulin sliding scale in hospital - metformin on hold #HTN - HCTZ on hold - continue norvasc - no ACEI given SAV #recreational drug use - patient admits to occasional use of cocaine, marijuana - unable to provide last use, or frequency #DVT prophylaxis - mechanical VS,Fishbone, I+O VS, Fishbone, I+O Laboratory Tests 10/25/18 06:30 Red Blood Count 4.33, Mean Corpuscular Volume 87.3, Mean Corpuscular Hemoglobin 27.9, Mean Corpuscular Hemoglobin Concent 32.0, Red Cell Distribution Width 12.9, Calcium Level 8.2 L Vital Signs Date Time Temp Pulse Resp B/P (MAP) Pulse Ox O2 Delivery O2 Flow Rate FiO2 10/25/18 09:39 18 2.0 10/25/18 09:08 85 134/68 10/25/18 06:00 98.3 96 I&O- Last 24 Hours up to 6 AM 10/25/18 06:00 Intake Total 1310 ml Output Total 500 ml Balance 810 ml YOSELIN SORIA MD Oct 25, 2018 13:04
[2018-10-25 14:00] VITALS: BP 154/72
[2018-10-25 22:00] VITALS: BP 137/71
[2018-10-26] MEDS: IPRATROPIUM 0.5MG/ALBUTEROL 2.5MG INH SOL UD 3ML (DUONEB)(J7620) NEB SCH ×6 (04:00→20:00)
[2018-10-26 06:00] VITALS: BP 166/73
[2018-10-26] MEDS: BUDESONIDE 180MCG INHALER (PULMICORT FLEXHALER) INH SCH ×2 (07:24→20:33)
[2018-10-26 07:27] LABS: HEMOGLOBIN 12.8 g/dl (13.5-17.5); MEAN CORPUSCULAR HEMOGLOBIN 28.8 pg (27.0-33.0); MEAN CORPUSCULAR VOLUME 90.1 fl (80.0-96.0); PLATELET COUNT, AUTOMATED 175 10^3/uL (150-450); RED BLOOD COUNT 4.44 10^6/uL (4.30-6.10); WHITE BLOOD COUNT 12.1 10^3/uL (4.0-10.0)
[2018-10-26 07:45] LABS: CALCIUM LEVEL 7.9 MG/DL (8.5-10.1); CREATININE FOR GFR 3.53 MG/DL (0.70-1.30); GLOMERULAR FILTRATION RATE 19.4 (>56); POTASSIUM SERUM 4.3 MEQ/L (3.5-5.1); VANCOMYCIN RANDOM 6.8 UG/ML
[2018-10-26] MEDS: predniSONE 20 MG TAB PO SCH (08:14)
[2018-10-26] MEDS: HumaLOG INSULIN (NovoLOG) PER UNIT SC SCH ×4 (08:14→20:27)
[2018-10-26] MEDS: amLODIPine 5 MG TAB PO SCH (08:16)
--- NOTE | 2018-10-26 10:16 | IPNPDOC ---
Text Note Date of Service The patient was seen on 10/26/18. NOTE Subjective: Patient seen and examined at bedside. No acute overnight events reported. No new medical complaints this morning. Objective: VITAL SIGNS: See below GENERAL APPEARANCE: NAD, sitting comfortably at edge of bed, talkative, disheveled HEENT: NC/AT, EOMI CARDIOVASCULAR: +S1S2, RRR LUNGS: CTA B/L ABDOMEN: soft, NT, distended, +BS EXTREMITIES: multiple well healing abrasions on b/l upper and lower extremities LABORATORY DATA: See below. MICROBIOLOGY: Please see below. ASSESSMENT: 53 yo male transferred from [facility] for worsening SAV. #SAV - possibly secondary to vanc/zos vs interstitial nephritis - CT A/P shows no obstruction - follow as per nephrology - consultation appreciated - hepatitis panel noted - right IJ temporary HD catheter place - s/p HD x 2 sessions - continue steroids - creatinine worse from yesterday - will continue to monitor #abrasions - do not appear to be infected - dressings off - topical care - continue with wound care #COPD - supplemental O2 - 3L at baseline - respiratory treatments #DM - insulin sliding scale in hospital - metformin on hold #HTN - HCTZ on hold - continue norvasc - no ACEI given SAV #recreational drug use - patient admits to occasional use of cocaine, marijuana - unable to provide last use, or frequency #DVT prophylaxis - mechanical #heartburn - notified by nursing regarding pt complaints of heartburn - calcium carbonate for now VS,Fishbone, I+O VS, Fishbone, I+O Laboratory Tests 10/26/18 05:53 Red Blood Count 4.44, Mean Corpuscular Volume 90.1, Mean Corpuscular Hemoglobin 28.8, Mean Corpuscular Hemoglobin Concent 32.0, Red Cell Distribution Width 13.1, Calcium Level 7.9 L Vital Signs Date Time Temp Pulse Resp B/P (MAP) Pulse Ox O2 Delivery O2 Flow Rate FiO2 10/26/18 08:16 86 152/84 10/26/18 06:00 98.7 19 99 3.0 I&O- Last 24 Hours up to 6 AM 10/26/18 06:00 Intake Total 2535 ml Output Total 0 ml Balance 2535 ml YOSELIN SORIA MD Oct 26, 2018 10:16
[2018-10-26] MEDS: CALCIUM CARBONATE 500 MG CHEW U/D PO PRN (10:27)
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
[2018-10-26 14:00] VITALS: BP 140/70
[2018-10-26] MEDS: PERCOCET 5MG/325MG TAB PO PRN (14:50)
[2018-10-26 22:00] VITALS: BP 124/68
[2018-10-27] MEDS: IPRATROPIUM 0.5MG/ALBUTEROL 2.5MG INH SOL UD 3ML (DUONEB)(J7620) NEB SCH ×4 (04:00→11:00)
[2018-10-27] MEDS: CALCIUM CARBONATE 500 MG CHEW U/D PO PRN (05:08)
[2018-10-27] MEDS: PERCOCET 5MG/325MG TAB PO PRN (05:09)
[2018-10-27 06:00] VITALS: BP 127/71
[2018-10-27 06:32] LABS: HEMATOCRIT 38.5 % (42.0-52.0); HEMOGLOBIN 12.4 g/dl (13.5-17.5); MEAN CORPUSCULAR HEMOGLOBIN 28.1 pg (27.0-33.0); MEAN CORPUSCULAR HGB CONC 32.2 g/dl (32.0-36.5); MEAN CORPUSCULAR VOLUME 87.1 fl (80.0-96.0); PLATELET COUNT, AUTOMATED 179 10^3/uL (150-450); RED BLOOD COUNT 4.42 10^6/uL (4.30-6.10); WHITE BLOOD COUNT 13.3 10^3/uL (4.0-10.0)
[2018-10-27 07:00] LABS: CALCIUM LEVEL 8.4 MG/DL (8.5-10.1); CREATININE FOR GFR 3.51 MG/DL (0.70-1.30); GLOMERULAR FILTRATION RATE 19.5 (>56); POTASSIUM SERUM 4.9 MEQ/L (3.5-5.1)
[2018-10-27] MEDS: BUDESONIDE 180MCG INHALER (PULMICORT FLEXHALER) INH SCH (07:56)
[2018-10-27] MEDS: HumaLOG INSULIN (NovoLOG) PER UNIT SC SCH ×2 (09:39→12:00)
[2018-10-27] MEDS: predniSONE 20 MG TAB PO SCH (09:39)
[2018-10-27 09:40] VITALS: BP 127/71
[2018-10-27] MEDS: amLODIPine 5 MG TAB PO SCH (09:40)
[2018-10-27] MEDS ORDERED: PRED10TA2 PO (11:27)
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
--- NOTE | 2018-10-27 20:35 | IPN ---
DATE: 10/26/2018 Mr. Rosales is seen this morning on his bedside. He denies any nausea, vomiting, dyspnea or chest pain. He reports good urine output. He was last dialyzed on Saturday due to acute renal failure and vancomycin toxicity. His wounds and lacerations have improved significantly and he remains afebrile. PHYSICAL EXAMINATION: Temperature 98.7 degrees Fahrenheit, heart rate 86 per minute and respiratory rate 18 per minute. Blood pressure 152/84 mmHg and oxygen saturation 95%. He has been on chronic home oxygen due to chronic obstructive pulmonary disease (COPD). His urinary output from yesterday was not recorded again. It was ordered yesterday. His head is atraumatic. Neck is supple and jugular venous distention (JVD) is not abnormally elevated. Lungs have diminished breath sounds bilaterally. Heart sounds are regular and without a pericardial friction rub. Abdomen is soft and nontender and bowel sounds are normal. Extremities have no cyanosis or clubbing. Neurologically, he is awake, alert and oriented times three. LABORATORY DATA: Today's laboratories show WBC count 12.1, hemoglobin 12.8 and hematocrit 40. Platelets 175. Sodium 143, potassium 4.3, CO2 34, BUN 55 and creatinine 3.53. Calcium level 7.9. PROBLEMS: 1. Acute renal failure. His creatinine was 2.7 and increased up to 3.5 today. He does have good urine output. However, creatinine is not improving as yet. He has been dialyzed and we will reevaluate him tomorrow for further dialysis treatment. At present, there is no emergent need for dialysis. 2. Vancomycin nephrotoxicity. His vancomycin level was 27.9 on admission and it is felt that his acute renal failure was related to vancomycin nephrotoxicity. Now, his vancomycin level has come down to 6.8 today. Vancomycin has been stopped even prior to his transfer to [facility]. 3. Hypertension. Blood pressure is well-controlled and no changes are being made.
--- NOTE | 2018-10-27 22:48 | IPN ---
DATE: 10/27/2018 Mr. Rosales is seen this morning on his bedside. He is feeling better and denies any fever or chills. He does have chronic dyspnea and has been on home oxygen. He does have some leg edema but also has chronic obstructive pulmonary disease (COPD) requiring oxygen. He reports good urine output. There is no nausea or vomiting. PHYSICAL EXAMINATION: Temperature 97.9 degrees Fahrenheit, heart rate 87 per minute and respiratory rate 18 per minute. Blood pressure 127/70 mmHg and oxygen saturation 97% on 2 liters oxygen. Head is atraumatic. He has a temporary dialysis catheter in right internal jugular vein. Heart sounds are regular and lungs with diminished breath sounds and bilateral scattered rhonchi. Abdomen: Soft and nontender and bowel sounds are normal. Extremities have no cyanosis or clubbing. He does have peripheral edema about 1+ to 2+ on both legs. Neurologically, he is awake, alert and oriented times three. Today's labs show a WBC count of 13.3, hemoglobin 12.4 and hematocrit 38.5. Sodium 140, potassium 4.9, CO2 of 32, BUN 59 and creatinine 3.51. Glucose 113 and calcium 8.4. PROBLEM #1: Acute renal failure. Kidney function seems to be leveled off. We anticipate improvement over the next few days. At present he has no uremic symptoms and has good urine output. His vancomycin level has already come down to 6.4. At present there is no need for further dialysis, and I feel that the patient can be discharged home and follow up as an outpatient. His dialysis catheter will be removed today prior to discharge. PROBLEM #2: Hypoxemia. He does have COPD and has been on chronic home oxygen. He has mild volume overload and will resume his hydrochlorothiazide. He is being advised to follow a moderate fluid restriction at home. PROBLEM #3: Diabetes. The patient was taking metformin at home, which has been stopped. He is being advised not to resume his metformin and will follow his dietary restrictions. PROBLEM #4: Disposition. The patient is going to be discharged to home today and will follow up in the outpatient clinic in 3 days. His renal profile will be checked at that time. His temporary dialysis catheter is being removed on bedside.
== END 2018-10-27 13:34 | disposition home or self-care (01) | DRG 683 ==
LOC: M MSPAV 18:06
PROVIDERS: ADMIT Internal Medicine; ATTEND Internal Medicine
PROC: 5A1D70Z Performance of Urinary Filtration, Intermittent, Less than 6 Hours Per Day (ICD-10-PCS; 2018-10-23)
PROC: 02HV33Z Insertion of Infusion Device into Superior Vena Cava, Percutaneous Approach (ICD-10-PCS; principal; 2018-10-23 14:30)
DX: N17.9 Acute kidney failure, unspecified (principal); J44.1 Chronic obstructive pulmonary disease with (acute) exacerbation; E11.9 Type 2 diabetes mellitus without complications; I10 Essential (primary) hypertension; Z79.84 Long term (current) use of oral hypoglycemic drugs; Z79.899 Other long term (current) drug therapy; Z88.1 Allergy status to other antibiotic agents; F14.10 Cocaine abuse, uncomplicated; F12.10 Cannabis abuse, uncomplicated; T36.8X5A Adverse effect of other systemic antibiotics, initial encounter; N12 Tubulo-interstitial nephritis, not specified as acute or chronic; Z99.81 Dependence on supplemental oxygen; R09.02 Hypoxemia; S40.811A Abrasion of right upper arm, initial encounter; S40.812A Abrasion of left upper arm, initial encounter; S80.811A Abrasion, right lower leg, initial encounter; S80.812A Abrasion, left lower leg, initial encounter; V86.56XA Driver of dirt bike or motor/cross bike injured in nontraffic accident, initial encounter; Y92.9 Unspecified place or not applicable

== ENCOUNTER 2018-12-19 17:41 | Emergency (ER) | payer MEDICARE ==
[~2018-12-19] VITALS: Ht 175.3 cm; Wt 110.8 kg
[~2018-12-19 17:41] MED LIST changes: +AMLO5TAB6 PO; +BUDE0.5S6 INH; +OXYC1TAB23 PO; +PRED10TA2 PO
[2018-12-19 18:21] LABS: BASO % 0.3 % (0.0-1.0); EOS # 0.2 10^3/uL (0.0-0.5); EOS % 1.6 % (0.0-3.0); HEMATOCRIT 45.4 % (42.0-52.0); HEMOGLOBIN 14.4 g/dl (13.5-17.5); LYMPH # 1.3 10^3/uL (1.5-5.0); MEAN CORPUSCULAR HEMOGLOBIN 29.8 pg (27.0-33.0); MEAN CORPUSCULAR HGB CONC 31.7 g/dl (32.0-36.5); MONO # 1.1 10^3/uL (0.0-0.8); MONO % 7.9 % (0.0-5.0); NEUTROPHILS # 11.5 10^3/uL (1.5-8.5); NEUTROPHILS % 80.6 % (36.0-66.0); PLATELET COUNT, AUTOMATED 162 10^3/uL (150-450); RED BLOOD COUNT 4.83 10^6/uL (4.30-6.10); WHITE BLOOD COUNT 14.3 10^3/uL (4.0-10.0)
[2018-12-19 18:22] LABS: VENOUS BASE EXCESS 4.3 (-2.0-2.0); VENOUS HCO3 33.4 MEQ/L (23.0-27.0); VENOUS O2 SATURATION 92.2 % (60.0-80.0); VENOUS PARTIAL PRESSURE CO2 70.6 mmHg (38.0-50.0); VENOUS PARTIAL PRESSURE O2 63.7 mmHg (30.0-50.0); VENOUS PH 7.293 UNITS (7.330-7.430); VENOUS STANDARD HCO3 28.2 MEQ/L; VENOUS TOTAL CO2 35.6 MEQ/L (24.0-28.0)
[2018-12-19 18:39] LABS: INR 0.94; PROTHROMBIN TIME 12.2 SECONDS (11.8-14.0)
--- NOTE | 2018-12-19 18:45 | REP ---
Portable chest, 06:12 p.m., single AP view with the patient upright: Comparisons are the chest CT dated 10/21/2018 and the portable chest dated 07/02/2018. The lung hopkins are clear. Cardiac size is normal. The susanne, mediastinum, skeletal structures are unchanged. There is a nodular density inferiorly in the right lung on the comparison CT is a calcified granuloma. Impression: There are no acute cardiopulmonary findings. Electronically Signed by Babar Goode MD 12/19/2018 06:36 P
[2018-12-19 19:05] LABS: ALBUMIN 3.7 GM/DL (3.2-5.2); ALT/SGPT 16 U/L (12-78); BILIRUBIN,DIRECT 0.1 MG/DL (0.0-0.2); BILIRUBIN,TOTAL 0.5 MG/DL (0.2-1.0); BLOOD UREA NITROGEN 13 MG/DL (7-18); CARBON DIOXIDE LEVEL 37 MEQ/L (21-32); CHLORIDE LEVEL 101 MEQ/L (98-107); CK-MB VALUE MASS 2.2 NG/ML (<3.6); CPK CREATINE PHOSPHOKINASE 49 U/L (39-308); CREATININE FOR GFR 0.69 MG/DL (0.70-1.30); GLOMERULAR FILTRATION RATE > 60.0 (>56); GLUCOSE, FASTING 97 MG/DL (70-100); MB/CK RELATIVE INDEX 4.49 (< OR =4); NT-PRO BNP 73 PG/ML (<125); POTASSIUM SERUM 4.2 MEQ/L (3.5-5.1); SODIUM LEVEL 141 MEQ/L (136-145); THYROID STIMULATING HORMONE 0.584 uIU/ML (0.358-3.740); TOTAL PROTEIN 6.4 GM/DL (6.4-8.2); TROPONIN I 0.02 NG/ML (< 0.10)
[2018-12-19] MEDS ORDERED: methylPREDNISolone INJ 125 MG/2 ML VIAL (J2930) IV ONE (19:15)
[2018-12-19] MEDS ORDERED: CEFDINIR 300 MG CAP (OMNICEF) PO ONE (19:15)
[2018-12-19] MEDS: IPRATROPIUM 0.5MG/ALBUTEROL 2.5MG INH SOL UD 3ML (DUONEB)(J7620) NEB SCH ×3 (19:28→20:30)
[2018-12-19 20:30] VITALS: BP 149/64
[2018-12-19] MEDS ORDERED: COMBAER6 INH (21:27)
[2018-12-19] MEDS ORDERED: CEFD300CAP PO (21:27)
[2018-12-19] MEDS ORDERED: PRED20TA PO (21:27)
--- NOTE | 2018-12-21 08:04 | ECGEPIP ---
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
== END 2018-12-19 21:43 | disposition home or self-care (01) ==
LOC: M ED 17:41
DX: J44.1 Chronic obstructive pulmonary disease with (acute) exacerbation (principal); I11.9 Hypertensive heart disease without heart failure; R00.0 Tachycardia, unspecified; R91.8 Other nonspecific abnormal finding of lung field; Z79.52 Long term (current) use of systemic steroids; Z79.899 Other long term (current) drug therapy; Z87.891 Personal history of nicotine dependence; Z88.1 Allergy status to other antibiotic agents; Z88.8 Allergy status to other drugs, medicaments and biological substances
CPT/HCPCS: 36415; 71045; 80048; 80076; 82550; 82553; 82803; 83605; 83880; 84443; 84484; 85025; 85610; 87040; 93005; 93041; 94640; 96374; 99285; J2930

== ENCOUNTER 2018-12-26 12:44 | Inpatient (IN) | payer MEDICARE ==
[~2018-12-26] VITALS: Ht 175.3 cm; Wt 107.6 kg
[~2018-12-26 12:44] MED LIST changes: +CEFD300CAP PO; +COMBAER6 INH
[2018-12-26] MEDS ORDERED: NS 1,000 ML IV SCH ×2 (12:53→15:46)
[2018-12-26] MEDS ORDERED: methylPREDNISolone INJ 125 MG/2 ML VIAL (J2930) IV ONE (13:00)
[2018-12-26] MEDS: IPRATROPIUM 0.5MG/ALBUTEROL 2.5MG INH SOL UD 3ML (DUONEB)(J7620) NEB PRN ×2 (13:04→13:17)
[2018-12-26 13:07] LABS: ABG BASE EXCESS 13.1 (-2.0-2.0); ABG HCO3 45.8 MEQ/L (22.0-26.0); ABG O2 SATURATION 90.8 % (95.0-99.0); ABG PARTIAL PRESSURE CO2 102.2 mmHg (35.0-45.0); ABG PARTIAL PRESSURE O2 63.9 mmHg (75.0-100.0); ABG STANDARD HCO3 36.8 MEQ/L (22.0-26.0); ABG TOTAL CO2 48.9 MEQ/L (22.0-29.0); ABG pH (ARTERIAL) 7.269 UNITS (7.350-7.450)
[2018-12-26 13:25] LABS: BASO % 0.2 % (0.0-1.0); EOS # 0.2 10^3/uL (0.0-0.5); EOS % 1.2 % (0.0-3.0); HEMATOCRIT 50.7 % (42.0-52.0); HEMOGLOBIN 15.8 g/dl (13.5-17.5); LYMPH # 1.4 10^3/uL (1.5-5.0); LYMPH % 8.3 % (24.0-44.0); MEAN CORPUSCULAR HEMOGLOBIN 29.4 pg (27.0-33.0); MEAN CORPUSCULAR HGB CONC 31.2 g/dl (32.0-36.5); MEAN CORPUSCULAR VOLUME 94.4 fl (80.0-96.0); MONO # 1.3 10^3/uL (0.0-0.8); MONO % 7.8 % (0.0-5.0); NEUTROPHILS # 14.1 10^3/uL (1.5-8.5); NEUTROPHILS % 81.9 % (36.0-66.0); PLATELET COUNT, AUTOMATED 181 10^3/uL (150-450); RED BLOOD COUNT 5.37 10^6/uL (4.30-6.10); WHITE BLOOD COUNT 17.2 10^3/uL (4.0-10.0)
[2018-12-26 13:34] LABS: INR 0.93; PROTHROMBIN TIME 12.2 SECONDS (11.8-14.0)
[2018-12-26 13:36] LABS: D-DIMER QUANT 269.85 ng/ml (<500)
[2018-12-26 13:56] LABS: ALBUMIN 3.8 GM/DL (3.2-5.2); ALT/SGPT 20 U/L (12-78); BILIRUBIN,DIRECT 0.1 MG/DL (0.0-0.2); BILIRUBIN,TOTAL 0.6 MG/DL (0.2-1.0); BLOOD UREA NITROGEN 28 MG/DL (7-18); CALCIUM LEVEL 8.8 MG/DL (8.5-10.1); CARBON DIOXIDE LEVEL 44 MEQ/L (21-32); CHLORIDE LEVEL 99 MEQ/L (98-107); CK-MB VALUE MASS 2.6 NG/ML (<3.6); CPK CREATINE PHOSPHOKINASE 74 U/L (39-308); CREATININE FOR GFR 0.66 MG/DL (0.70-1.30); GLOMERULAR FILTRATION RATE > 60.0 (>56); GLUCOSE, FASTING 146 MG/DL (70-100); MB/CK RELATIVE INDEX 3.51 (< OR =4); NT-PRO BNP 145 PG/ML (<125); POTASSIUM SERUM 3.8 MEQ/L (3.5-5.1); SODIUM LEVEL 144 MEQ/L (136-145); TOTAL PROTEIN 6.5 GM/DL (6.4-8.2); TROPONIN I 0.02 NG/ML (< 0.10)
--- NOTE | 2018-12-26 14:05 | REP ---
Portable chest x-ray: Single view. History: Dyspnea and cough. Comparison chest x-ray December 19, 2018. July 01, 2018 prior radiograph is also reviewed. Findings: There is a large dense granulomatous nodule 2.6 cm in greatest diameter in the right base consistent with the right middle lobe calcified benign granuloma seen on October 21, 2018 CT study. Mild cardiomegaly is observed. Pulmonary vasculature is cephalized. Pleural angles are sharp. Right hemidiaphragm is slightly elevated as on prior studies. There are degenerative changes in the thoracic spine. Impression: 2.6 cm granuloma right middle lobe. Somewhat elevated right hemidiaphragm. Cardiomegaly and pulmonary vascular congestion. Electronically Signed by Fredi Borrero MD 12/26/2018 02:11 P
[2018-12-26 14:38] LABS: ABG BASE EXCESS 16.6 (-2.0-2.0); ABG O2 SATURATION 91.5 % (95.0-99.0); ABG PARTIAL PRESSURE O2 69.9 mmHg (75.0-100.0); ABG STANDARD HCO3 40.6 MEQ/L (22.0-26.0); ABG TOTAL CO2 56.2 MEQ/L (22.0-29.0)
[2018-12-26 14:43] LABS: ABG PARTIAL PRESSURE CO2 136.2 mmHg (35.0-45.0)
[2018-12-26] MEDS ORDERED: PRED20TA PO (15:37)
[2018-12-26] MEDS ORDERED: CEFD300CAP PO (15:37)
[2018-12-26] MEDS ORDERED: FLON1SPR NARES (15:37)
[2018-12-26] MEDS ORDERED: ALB2.5NEB INH (15:37)
[2018-12-26] MEDS ORDERED: COMBAER6 INH (15:42)
[2018-12-26] MEDS ORDERED: IPRATROPIUM 0.5MG/ALBUTEROL 2.5MG INH SOL UD 3ML (DUONEB)(J7620) NEB SCH (16:00)
[2018-12-26 16:49] LABS: ABG BASE EXCESS 15.5 (-2.0-2.0); ABG HCO3 51.2 MEQ/L (22.0-26.0); ABG PARTIAL PRESSURE CO2 142.9 mmHg (35.0-45.0); ABG PARTIAL PRESSURE O2 69.2 mmHg (75.0-100.0); ABG STANDARD HCO3 39.3 MEQ/L (22.0-26.0); ABG TOTAL CO2 55.6 MEQ/L (22.0-29.0); ABG pH (ARTERIAL) 7.172 UNITS (7.350-7.450)
[2018-12-26] MEDS ORDERED: PROPOFOL 1,000 MG/100 ML VIAL As Ordered ONE (17:13)
[2018-12-26] MEDS ORDERED: PROPOFOL 1,000 MG in IV 1 EA IV SCH (17:15)
[2018-12-26 17:50] VITALS: BP 162/73
[2018-12-26] MEDS ORDERED: SUCCINYLCHOLINE 100 MG/5 ML SYRINGE (J0330) ONE (18:06)
[2018-12-26] MEDS ORDERED: ROCURONIUM BROMIDE 50 MG/5 ML VIAL ONE (18:06)
[2018-12-26] MEDS ORDERED: ETOMIDATE INJ 20MG/10ML VIAL ONE (18:06)
[2018-12-26] MEDS ORDERED: EPINEPHrine 1MG/10ML SYRINGE 1.5IN IV STA ×8 (18:24)
[2018-12-26] MEDS ORDERED: ATROPINE SULF 1MG/10ML SYRINGE (J0461) IV STA ×2 (18:24)
[2018-12-26] MEDS ORDERED: ETOMIDATE INJ 20MG/10ML VIAL IV ONE (18:30)
[2018-12-26] MEDS ORDERED: SUCCINYLCHOLINE INJ 200 MG/10 ML VIAL (J0330) IV ONE (18:30)
[2018-12-26] MEDS ORDERED: NS 1,000 ML IV ONE ×3 (19:00)
--- NOTE | 2018-12-26 19:02 | ECGEPIP ---
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
--- NOTE | 2018-12-26 19:03 | REP ---
REASON: Status post intubation. Technique is limited, and assessment of the lung hopkins cannot be made due to the technique utilized in obtaining and reproducing the limited AP portable supine chest. Comparison exam is 12/26/2018, performed in the standard fashion. There appears to be a curvilinear radiodensity in the esophagus, possibly related to attempted NG tube placement. The tip of the tube is just proximal to the level of the aortic knob, seemingly within the esophagus. This needs to be correlated clinically. There is cardiomegaly accentuated by technique. If evaluation of the lung hopkins is of clinical concern, then a repeat radiograph is recommended using standard technique. Electronically Signed by David Ken DO 12/26/2018 07:51 P
--- NOTE | 2018-12-26 19:15 | HPEPDOC ---
General Date of Admission 12/26/18 Date of Service: Dec 26, 2018 Chief Complaint The patient is a 53-year-old male admitted with a reason for visit of SOB. Source: Patient, RN/, Old records History of Present Illness 53 year old male with PMH of Chronic respiratory failure both hypoxemic and hypercapnic, Advanced underlying obstructive lung disease., Previous substance a nd tobacco abuse, Chronically abnormal x-ray, Chronic opiate use, Recent SAV in september 2018 possible adverse effect vancomycin/zosyn , possible interstitial nephritis, HTN presented to the ED with 5 days of increasing SOB and cough. He was in the ED on 12/19/18 with COPD exacerbation and was managed in the the ED and discharged home with antibiotics, steroids, nebulizers. He improved a little but then again worsened over the past 5 days so came to the ED on arrival his was hypoxic and hypercarbic with ABG of 7.26/102/63 he got nebs and steroids and repeat abg after 1.5 hours was 7.2/136/69 patient was put on BIPAP as he was still talking and responsive and wanted to try the BIPAP first. Hospitalist was called for admission. On my interview he was somnolent but was able to answer few questions and follow commands. Patient was admitted for acute on chronic respiratory failure due to Advanced COPD and COPD exacerbation. Most of the history is obtained from chart review and talking with Dr Carreon with whom he used to follow for several years. As per Dr Carreon he has not been to see him at the office for the past year but did see him in the hospital earlier this year when he was admitted. Home Medications Scheduled Amlodipine Besylate (Amlodipine Besylate) 5 Mg Tablet, 5 MG PO DAILY, (Reported) STARTED AT [facility] Budesonide (Budesonide) 0.5 Mg/2 Ml Ampul.neb, 0.5 MG INH BID, (Reported) STARTED AT [facility] Cefdinir (Cefdinir) 300 Mg Capsule, 300 MG PO BID, (Reported) FILLED 12/19/18 FOR 10 DAYS Fluticasone Propionate (Flonase Allergy Relief) 9.9 Ml Freedom.susp, 2 SPRAY NARES DAILY, (Reported) Ipratropium/Albuterol Sulfate (Combivent Respimat 20-100 Mcg) 4 Gm Mist.inhal, 2 PUFF INH TID, (Reported) Prednisone (Prednisone) 20 Mg Tablet, 20 MG PO ASDIRECTED, (Reported) FILLED 12/19/18 60MG DAILY ON DAYS 1-3, 40MG DAILY ON DAYS 4-7 AND 20MG ON DAYS 8-10 Scheduled PRN Albuterol Sulfate (Albuterol Sulfate) 2.5 Mg/0.5 Ml Vial.neb, 2.5 MG INH TID PRN for SOB/WHEEZING, (Reported) Ipratropium/Albuterol Sulfate (Iprat-Albut 0.5-3(2.5) mg/3 ml) 3 Ml Ampul.neb, 1 NEB INH QID PRN for SHORTNESS OF BREATH, (Reported) Oxycodone HCl/Acetaminophen (Oxycodone-Acetaminophen 5-325) 1 Each Tablet, 1 TAB PO Q4H PRN for PAIN, (Reported) Allergies Coded Allergies: levofloxacin (Verified Allergy, Mild, RASH, 12/19/18) vancomycin (Verified Adverse Reaction, Intermediate, KIDNEY FAILURE, 12/19) Past Medical History Medical History chronic respiratory failure both hypoxemic and hypercapnic. Advanced underlying obstructive lung disease. Previous substance and tobacco abuse. Chronically abnormal x-ray. Chronic opiate use Recent SAV in september 2018 possible adverse effect vancomycin/zosyn possible interstitial nephritis HTN Surgical History cardiac catheterization, and right rotator cuff repair. Family History Could not be obtained from the patient as he was very somnolent. But chart review shows that there is no family history of heart or lung problems. Social History * Smoker: former Smoker Alcohol: other (history of alcohol abuse) Drugs: other (former substance abuse with cocaine) A-FIB/CHADSVASC A-FIB History Current/History of A-Fib/PAF?: No Review of Systems Constitutional: Denies: Chills, Fever, Night Sweats Eyes: Denies: Pain, Vision change Pulmonary: Reports: Dyspnea, Cough Cardiovascular: Denies: Chest Pain, Palpitations, Lt Headedness Gastrointestinal: Denies: Nausea, Vomiting, Abdominal Pain, Diarrhea Genitourinary: Denies: Dysuria, Frequency, Incontinence, Retention Hematologic: Denies: Bruising, Bleeding Excessively Physical Examination General Exam: Positive: Moderate Distress, Other (somnolent on BIPAP) Eye Exam: Positive: PERRLA, Other Eye Symptoms (eyelids puffy); Negative: Sclera icteric Neck Exam: Positive: Supple; Negative: JVD, thyromegaly Chest Exam: Positive: Rhonchi, Wheezing, Diminished Heart Exam: Positive: Tachycardic, Normal S1, Normal S2; Negative: Gallops, Murmurs, Rubs, Other Telemetry: Positive: No significant arrhythmia Abdomen Exam: Positive: Normal bowel sounds, Soft; Negative: Tenderness, Hepatospenomegaly Extremity Exam: Positive: Normal pulses; Negative: Clubbing, Cyanosis, Edema Vital Signs Vital Signs Date Time Temp Pulse Resp B/P (MAP) Pulse Ox O2 Delivery O2 Flow Rate FiO2 12/26/18 15:40 50 12/26/18 15:15 108 163/67 (99) 92 NIPPV (BIPAP/CPAP) 12/26/18 13:13 3.0 12/26/18 12:56 98.4 12/26/18 12:52 38 Laboratory Data Labs 24H Laboratory Tests 2 12/26/18 13:00: Immature Granulocyte % (Auto) 0.6, White Blood Count 17.2H, Red Blood Count 5.37, Hemoglobin 15.8, Hematocrit 50.7, Mean Corpuscular Volume 94.4, Mean Corpuscular Hemoglobin 29.4, Mean Corpuscular Hemoglobin Concent 31.2L, Red Cell Distribution Width 15.2H, Platelet Count 181, Neutrophils (%) (Auto) 81.9H, Lymphocytes (%) (Auto) 8.3L, Monocytes (%) (Auto) 7.8H, Eosinophils (%) (Auto) 1.2, Basophils (%) (Auto) 0.2, Neutrophils # (Auto) 14.1H, Lymphocytes # (Auto) 1.4L, Monocytes # (Auto) 1.3H, Eosinophils # (Auto) 0.2, Basophils # (Auto) 0.0, Nucleated Red Blood Cells % (auto) 0.0, Anion Gap 1L, Glomerular Filtration Rate > 60.0, Calcium Level 8.8, Aspartate Amino Transf (AST/SGOT) 5L, Alanine Aminotransferase (ALT/SGPT) 20, Alkaline Phosphatase 72, Total Bilirubin 0.6, Direct Bilirubin 0.1, Total Creatine Kinase 74, Creatine Kinase MB 2.6, Creatine Kinase MB Relative Index 3.51, Troponin I 0.02, LG-Ecu-H-Type Natriuretic Peptide 145H, Total Protein 6.5, Albumin 3.8, Albumin/Globulin Ratio 1.41 12/26/18 13:01: Blood Gas Bicarbonate Standard 36.8H, Arterial Blood pH 7.269L, Arterial Blood Partial Pressure CO2 102.2*H, Arterial Blood Partial Pressure O2 63.9L, Arterial Blood Total CO2 48.9H, Arterial Blood HCO3 45.8H, Arterial Blood Base Excess 13.1H, Arterial Blood Oxygen Saturation 90.8L 12/26/18 13:05: Prothrombin Time 12.2, Prothromb Time International Ratio 0.93, D-Dimer, Quantitative 269.85 12/26/18 14:30: Blood Gas Bicarbonate Standard 40.6H, Arterial Blood pH 7.200*L, Arterial Blood Partial Pressure CO2 136.2*H, Arterial Blood Partial Pressure O2 69.9L, Arterial Blood Total CO2 56.2H, Arterial Blood HCO3 52.0H, Arterial Blood Base Excess 16.6H, Arterial Blood Oxygen Saturation 91.5L CBC/BMP Laboratory Tests 12/26/18 13:00 Red Blood Count 5.37, Mean Corpuscular Volume 94.4, Mean Corpuscular Hemoglobin 29.4, Mean Corpuscular Hemoglobin Concent 31.2 L, Red Cell Distribution Width 15.2 H, Neutrophils (%) (Auto) 81.9 H, Lymphocytes (%) (Auto) 8.3 L, Monocytes (%) (Auto) 7.8 H, Eosinophils (%) (Auto) 1.2, Basophils (%) (Auto) 0.2, Neutrophils # (Auto) 14.1 H, Lymphocytes # (Auto) 1.4 L, Monocytes # (Auto) 1.3 H, Eosinophils # (Auto) 0.2, Basophils # (Auto) 0.0 Microbiology Microbiology 12/26/18 Blood Culture, Received Pending 12/26/18 Blood Culture, Received Pending Assessment/Plan 53 year old male with PMH of Chronic respiratory failure both hypoxemic and hypercapnic, Advanced underlying obstructive lung disease., Previous substance and tobacco abuse, Chronically abnormal x-ray, Chronic opiate use, Recent SAV in september 2018 possible adverse effect vancomycin/zosyn , possible interstitial nephritis, HTN presented to the ED with 5 days of increasing SOB and cough. He was in the ED on 12/19/18 with COPD exacerbation and was managed in the the ED and discharged home with antibiotics, steroids, nebulizers. He improved a little but then again worsened over the past 5 days so came to the ED on arrival his was hypoxic and hypercarbic with ABG of 7.26/102/63 he got nebs and steroids and repeat abg after 1.5 hours was 7.2/136/69 patient was put on BIPAP as he was still talking and responsive and wanted to try the BIPAP first. Hospitalist was called for admission. On my interview he was somnolent but was able to answer few questions and follow commands. Patient was admitted for acute on chronic respiratory failure due to Advanced COPD and COPD exacerbation. Acute on chronic respiratoy failure with hypoxia and hypercarbia patient started on BIPAP 29/09 will check ABG in 1 hour if no improvement will in tubate. will admit to ICU. NPO, IVF. COPD exacerbation duonebs, methyl prednisone, budesonide, azithromycin. Hypertension continue amlodipine. Advance directives Full code. Plan / VTE VTE Prophylaxis Ordered?: Yes ZACK MCDANIEL MD Dec 26, 2018 16:00
[2018-12-26] MEDS ORDERED: BUDESONIDE 0.5 MG/2 ML INHALATION SUSPENSION INH SCH (20:00)
[2018-12-26] MEDS ORDERED: methylPREDNISolone INJ 125 MG/2 ML VIAL (J2930) IV SCH (20:00)
[2018-12-26] MEDS ORDERED: ENOXAPARIN 40 MG/0.4 ML SYRINGE (J1650) SC SCH (21:00)
--- NOTE | 2018-12-27 04:58 | IPNPDOC ---
Text Note Date of Service The patient was seen on 12/26/18. NOTE Late Entry Patient attended on 12/26/18 at 5:10 pm Patient's follow up ABG after 1.5 hour of BIPAP with changed settings showed further worsening 7.17/143/69. Patient was very somnolent but still responsive. Answering yes and no questions. I discussed with Dr Carreon the Abgs and whether to increase the setting of the BIPAP or to intubate. As there was continuous worsening of the ABGs and patient becoming more and more somnolent it was decided to intubate. I spoke with the patient and he said yes to intubation. It was a difficult intubation and failed 2 passes by the ED, PA. Patient vomited during the procedure , became difficult to bag and became hypoxic and started becoming bradycardic. Pulse could not be felt so cpr started. Anesthesia was called and patient was successfully intubated. Even with adequete oxygenation no pulse was regained, there continued to be cardiac complexes in the monitor. Patient was now in PEA. CPR was continued. I tried to contact Patient's Son and sister but neither could be reached. voice mail messages left for the son. I spoke with Dr Carreon again at bedside and he felt the Patient's prognosis was very bad even if we could achieve circulation as he has very advanced lung disease and possibly severe pulmonary hypertension. After 35 mins of CPR no return of circulation could be achieved. Patient was declared at 18:07 on 12/26/18. I was present at the bedside and the ED for 60 minutes coordinating the care of the patient. Critical care time spent 60 mins Jaya JIMENEZ, I+O VSJaya, I+O Laboratory Tests 12/26/18 13:00 Red Blood Count 5.37, Mean Corpuscular Volume 94.4, Mean Corpuscular Hemoglobin 29.4, Mean Corpuscular Hemoglobin Concent 31.2 L, Red Cell Distribution Width 15.2 H, Neutrophils (%) (Auto) 81.9 H, Lymphocytes (%) (Auto) 8.3 L, Monocytes (%) (Auto) 7.8 H, Eosinophils (%) (Auto) 1.2, Basophils (%) (Auto) 0.2, Neutrophils # (Auto) 14.1 H, Lymphocytes # (Auto) 1.4 L, Monocytes # (Auto) 1.3 H, Eosinophils # (Auto) 0.2, Basophils # (Auto) 0.0 Vital Signs Date Time Temp Pulse Resp B/P (MAP) Pulse Ox O2 Delivery O2 Flow Rate FiO2 12/26/18 18:15 20 12/26/18 18:00 90 12/26/18 17:50 162/73 (102) 12/26/18 16:25 98.9 12/26/18 16:15 23 NIPPV (BIPAP/CPAP) 50 12/26/18 13:13 3.0 I&O- Last 24 Hours up to 6 AM 12/27/18 06:00 Intake Total 3000 ml Balance 3000 ml ZACK MCDANIEL MD Dec 27, 2018 04:56
== END 2018-12-26 18:07 | disposition expired | DRG 189 ==
LOC: M ED 12:44 → M ED INP 15:46
PROVIDERS: ADMIT Internal Medicine Nephrology; ATTEND Internal Medicine Nephrology
PROC: 5A19054 Respiratory Ventilation, Single, Nonmechanical (ICD-10-PCS; principal; 2018-12-26)
PROC: 0BH17EZ Insertion of Endotracheal Airway into Trachea, Via Natural or Artificial Opening (ICD-10-PCS; 2018-12-26)
DX: J96.21 Acute and chronic respiratory failure with hypoxia (principal); J44.1 Chronic obstructive pulmonary disease with (acute) exacerbation; J96.22 Acute and chronic respiratory failure with hypercapnia; I10 Essential (primary) hypertension; Z79.52 Long term (current) use of systemic steroids; Z79.891 Long term (current) use of opiate analgesic; Z79.899 Other long term (current) drug therapy; Z88.1 Allergy status to other antibiotic agents; Z87.891 Personal history of nicotine dependence; I46.9 Cardiac arrest, cause unspecified